=== PATIENT | male | born 1995 | race Caucasian/White ===

== ENCOUNTER 2016-08-31 23:59 | Emergency (ER) | payer OTHER ==
[2016-09-01] MEDS ORDERED: NS 0.9% 1000 ML* 1,000 ML IV ONE (00:47)
[2016-09-01 01:47] LABS: Hematocrit 43 % (42-52); Mean Corpuscular HGB Conc 33 g/dl (31-36); Mean Corpuscular Hemoglobin 28 pg (27-31); Mean Corpuscular Volume 87 fL (80-94); Mean Platelet Volume 9 um3 (7.4-10.4); Red Blood Count 4.98 10^6/ul (4.0-5.4); Red Cell Distribution Width 15 % (10.5-15); White Blood Count 12.1 10^3/ul (3.5-10.8)
[2016-09-01 01:57] LABS: ALT 10 U/L (7-52); AST 11 U/L (13-39); Albumin 3.8 g/dL (3.2-5.2); Alkaline Phosphatase 42 U/L (34-104); Anion Gap 4 mmol/L (2-11); BUN/Creatinine Ratio 11.3 (8-20); Blood Urea Nitrogen 11 mg/dL (6-24); C Reactive Protein < 1.00 mg/L (< 5.00); CO2 Carbon Dioxide 26 mmol/L (22-32); Calcium 8.6 mg/dL (8.6-10.3); Chloride 107 mmol/L (101-111); EGFR African American 124.5 (>60); EGFR Non-African American 96.8 (>60); Globulin 2.7 g/dL (2-4); Glucose 88 mg/dL (70-100); Potassium 3.8 mmol/L (3.5-5.0); Sodium 137 mmol/L (133-145); Total Protein 6.5 g/dL (6.4-8.9)
[2016-09-01] MEDS ORDERED: Ondansetron INJ* 2 MG/ML VIAL IV ONE (02:07)
[2016-09-01] MEDS ORDERED: Ketorolac INJ* 30 MG/ML 1 ML VIAL IV ONE (02:07)
[2016-09-01] MEDS ORDERED: Iohexol 300* (CONTRAST) 10 ML SDV IV ONE (02:09)
[2016-09-01 02:51] LABS: Urine Bilirubin Negative (Negative); Urine Glucose Negative (Negative); Urine Nitrite Negative (Negative)
--- NOTE | 2016-09-01 05:04 | ED ---
Miguel Stanley Adam, scribed for Calvin Patino MD on 09/01/16 at 0040 . GI/ HPI - HPI Summary HPI Summary: Pt is a 21 year old male presenting with dysuria and lower abdominal pain. He states that he has been having urinary symptoms for approximately 1 month but worse in the past week. He reports urgency to urinate but difficulty and pain in doing so. When he is able to urinate after pushing he reports scant output and pain. He last urinated this morning and it was in the manner just described. Pt states that the abdominal pain set on approximately 1 week ago. It is localized in the groin around the genitals but not in the penis or testicles themselves. Pt saw the urologist and is scheduled to have a testicular US done this week. Pt is transgender and tucks his genitals but has stopped tucking for the past few weeks because of concerns about the urinary sx. He also c/o constipation, stating that his last BM was 1 week ago after 3-4 days of diarrhea. He has anal intercourse. 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 - History of Current Complaint Chief Complaint: EDUrogenitalProblems Time Seen by Provider: 09/01/16 00:28 Stated Complaint: UNABLE TO URINATE/TESTICULAR PAIN Hx Obtained From: Patient Onset/Duration: Started Days Ago, Atraumatic, Still Present Timing: Constant Severity: Mild Current Severity: Moderate Pain Intensity: 7 Location of Pain: Diffuse, Groin Associated Signs and Symptoms: Positive: Constipation, Dysuria Aggravating Factor(s): Nothing Alleviating Factor(s): Nothing - Additional Pertinent History Primary Care Physician: ROULA - Allergy/Home Medications Allergies/Adverse Reactions: Allergies Allergy/AdvReac Type Severity Reaction Status Date / Time Lactose Intolerance (GI) Allergy Abdominal Verified 06/15/16 06:40 Pain Olopatadine [From Patanol] Allergy Unknown Verified 06/15/16 03:56 Reaction Details PMH/Surg Hx/FS Hx/Imm Hx Endocrine/Hematology History: Reports: Other Endocrine/Hematological Disorders - "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" Cardiovascular History: Denies: Other Cardiovascular Problems/Disorders Respiratory History: Denies: Other Respiratory Problems/Disorders GI History: Denies: Other GI Disorders Sensory History: Reports: Hx Contacts or Glasses - GLASSES Denies: Hx Hearing Aid Opthamlomology History: Reports: Hx Contacts or Glasses - GLASSES Neurological History: Reports: Hx 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 Denies: Other Neuro Impairments/Disorders Psychiatric History: Denies: Hx Eating Disorder, Hx of Violent Episodes Against Others - Surgical History Surgery Procedure, Year, and Place: WISDOM TEETH Hx Anesthesia Reactions: No Infectious Disease History: No Infectious Disease History: Denies: Traveled Outside the [place] in Last 30 Days - Family History Known Family History: Positive: Other - EtOH abuse and bipolar disorder to both parents - Social History Occupation: Unemployed Lives: With Family - Mother Alcohol Use: Rare Hx Substance Use: No Substance Use Type: Reports: Marijuana Hx Tobacco Use: Yes Smoking Status (MU): Heavy Every Day Tobacco Smoker Type: Cigarettes Length of Time of Smoking/Using Tobacco: 2 packs a day Review of Systems Negative: Fever Positive: Abdominal Pain, Other - Constipation Positive: dysuria, pain, urgency, other - Scant output All Other Systems Reviewed And Are Negative: Yes Physical Exam Triage Information Reviewed: Yes Vital Signs On Initial Exam: Initial Vitals Temp Pulse Resp BP Pulse Ox 98.6 F 97 16 114/76 99 09/01/16 00:11 09/01/16 00:11 09/01/16 00:11 09/01/16 00:11 09/01/16 00:11 Vital Signs Reviewed: Yes Appearance: Positive: Well-Appearing, No Pain Distress Skin: Positive: Warm, Skin Color Reflects Adequate Perfusion, Dry Head/Face: Positive: Normal Head/Face Inspection Eyes: Positive: EOMI, GREG ENT: Positive: Normal ENT inspection Neck: Positive: Supple, Nontender Respiratory/Lung Sounds: Positive: Clear to Auscultation, Breath Sounds Present Cardiovascular: Positive: RRR Abdomen Description: Positive: Nontender, Soft Bowel Sounds: Positive: Present Male Genital Exam: Positive: other - Testicles are descended, nontender to palpation, no swelling, no lesions. Minimal tenderness in the right inguinal crease. Musculoskeletal: Positive: Normal, Strength/ROM Intact Neurological: Positive: Normal, Sensory/Motor Intact, Alert, Oriented to Person Place, Time Psychiatric: Positive: Affect/Mood Appropriate Diagnostics - Vital Signs Vital Signs Temp Pulse Resp BP Pulse Ox 09/01/16 00:11 98.6 F 97 16 114/76 99 - Laboratory Lab Results: Lab Results 09/01/16 09/01/16 09/01/16 Range/Units 01:20 01:20 02:40 WBC 12.1 H (3.5-10.8) 10^3/ul RBC 4.98 (4.0-5.4) 10^6/ul Hgb 14.0 (14.0-18.0) g/dl Hct 43 (42-52) % MCV 87 (80-94) fL MCH 28 (27-31) pg MCHC 33 (31-36) g/dl RDW 15 (10.5-15) % Plt Count 260 (150-450) 10^3/ul MPV 9 (7.4-10.4) um3 Neut % (Auto) 64.0 (38-83) % Lymph % (Auto) 26.4 (25-47) % Swisher % (Auto) 6.0 (1-9) % Eos % (Auto) 3.0 (0-6) % Baso % (Auto) 0.6 (0-2) % Absolute Neuts (auto) 7.8 H (1.5-7.7) 10^3/ul Absolute Lymphs (auto) 3.2 (1.0-4.8) 10^3/ul Absolute Monos (auto) 0.7 (0-0.8) 10^3/ul Absolute Eos (auto) 0.4 (0-0.6) 10^3/ul Absolute Basos (auto) 0.1 (0-0.2) 10^3/ul Absolute Nucleated RBC 0.01 10^3/ul Nucleated RBC % 0.1 Sodium 137 (133-145) mmol/L Potassium 3.8 (3.5-5.0) mmol/L Chloride 107 (101-111) mmol/L Carbon Dioxide 26 (22-32) mmol/L Anion Gap 4 (2-11) mmol/L BUN 11 (6-24) mg/dL Creatinine 0.97 (0.67-1.17) mg/dL Est GFR ( Amer) 124.5 (>60) Est GFR (Non-Af Amer) 96.8 (>60) BUN/Creatinine Ratio 11.3 (8-20) Glucose 88 (70-100) mg/dL Calcium 8.6 (8.6-10.3) mg/dL Total Bilirubin 0.20 (0.2-1.0) mg/dL AST 11 L (13-39) U/L ALT 10 (7-52) U/L Alkaline Phosphatase 42 (34-104) U/L C-Reactive Protein < 1.00 (< 5.00) mg/L Total Protein 6.5 (6.4-8.9) g/dL Albumin 3.8 (3.2-5.2) g/dL Globulin 2.7 (2-4) g/dL Albumin/Globulin Ratio 1.4 (1-3) Urine Color Yellow Urine Appearance Cloudy Urine pH 6.0 (5-9) Ur Specific Parsons 1.014 (1.010-1.030) Urine Protein Negative (Negative) Urine Ketones Trace H (Negative) Urine Blood Negative (Negative) Urine Nitrate Negative (Negative) Urine Bilirubin Negative (Negative) Urine Urobilinogen Negative (Negative) Ur Leukocyte Esterase Negative (Negative) Urine Glucose Negative (Negative) Result Diagrams: 09/01/16 01:20 09/01/16 01:20 Lab Statement: Any lab studies that have been ordered have been reviewed, and results considered in the medical decision making process. - CT A/P CT Interpretation Completed By: Radiologist - FINDINGS: THERE IS ABUNDANT STOOL THROUGHOUT MUCH OF THE COLON. HOWEVER THERE IS NO LARGE OR SMALL BOWEL OBSTRUCTION. NO FREE AIR OR FREE FLUID. NEGATIVE FOR DIVERTICULITIS OR COLITIS. APPENDIX NOT WELL-VISUALIZED BUT NO PARA-CECAL INFLAMMATION. NORMAL KIDNEYS URINARY TRACT AND URINARY BLADDER. NO URINARY TRACT OBSTRUCTION. NORMAL LIVER. CONTRACTED GALLBLADDER. NORMAL SPLEEN. NORMAL PANCREAS. NORMAL ADRENAL GLANDS. OVERALL NO ACUTE INTRA-ABDOMINAL ABNORMALITIES. GIGU Course/Dx - Course Assessment/Plan: INITIALLY PATIENT HAD 400CC IN BLADDER. AFTER VOIDING, 100CC REMAINED. PAIN IMPROVED IN ED WITH TORADOL. DISCUSSED RESULTS WITH PATIENT/ MOTHER. DISCHARGE HOME STABLE. - Diagnoses Provider Diagnoses: Constipation, Urinary retention, Abdominal pain Discharge - Discharge Plan Condition: Stable Disposition: HOME Patient Education Materials: Constipation (ED), Urinary Retention in Men (ED), Abdominal Pain (ED) Referrals: Brandon Carrizales NP [Primary Care Provider] - Additional Instructions: FOLLOW UP WITH YOUR DOCTOR AND [facility]ED [facility]. RETURN TO THE EMERGENCY DEPARTMENT FOR ANY WORSENING OF YOUR CONDITION OR QUESTIONS OR CONCERNS. The documentation as recorded by the Miguel hess Adam accurately reflects the service I personally performed and the decisions made by me, Calvin Patino MD.
[2016-09-01 05:37] VITALS: BP 115/60
--- NOTE | 2016-09-01 09:27 | RAD ---
Indication: Abdominal pain, urinary retention CT of the abdomen and pelvis was performed after oral and IV contrast administration. Coronal and sagittal reconstructed images were obtained. Administered 79.0 ml of OMNIPAQUE 300 mgi/ml was given according to hospital protocol. The lung bases demonstrate no pleural fluid, nodules or masses. Heart is of normal size without evidence of pericardial effusion. The liver is normal in size. No focal lesions or intrahepatic duct dilatation is noted. The spleen is normal in size. No adrenal lesions are noted. The kidneys demonstrate symmetric nephrograms without focal lesions. No retroperitoneal lymphadenopathy is noted. No dilated loops of bowel are noted. The colon is filled with stool. Aorta and inferior vena cava are unremarkable. Appendix is not well demonstrated. No free fluid is noted. The urinary bladder is collapsed. No hernias are identified. IMPRESSION: No abnormal masses or fluid collections are noted. No evidence of pericecal inflammation is noted.
== END 2016-09-01 05:25 | disposition home or self-care (01) ==
LOC: ED 23:59
DX: R33.9 Retention of urine, unspecified (principal); K59.00 Constipation, unspecified; R10.9 Unspecified abdominal pain; F17.210 Nicotine dependence, cigarettes, uncomplicated
CPT/HCPCS: 36415; 74177; 80053; 81003; 85025; 86140; 87491; 87591; 96360; 96374; 96375; 99283; J1885; J2405; Q9967

== ENCOUNTER 2017-02-12 18:02 | Emergency (ER) | payer OTHER ==
[2017-02-12] MEDS ORDERED: NS 0.9% 1000 ML* 1,000 ML IV ONE ×2 (18:18→23:25)
[2017-02-12] MEDS ORDERED: Ondansetron INJ* 2 MG/ML VIAL IV ONE ×2 (18:18→20:04)
[2017-02-12] MEDS ORDERED: Ketorolac INJ* 30 MG/ML 1 ML VIAL IV PUSH ONE (19:08)
[2017-02-12 19:57] LABS: Hematocrit 46 % (42-52); Hemoglobin 15.4 g/dl (14.0-18.0); Mean Corpuscular HGB Conc 34 g/dl (31-36); Mean Corpuscular Hemoglobin 29 pg (27-31); Mean Corpuscular Volume 87 fL (80-94); Mean Platelet Volume 10 um3 (7.4-10.4); Red Blood Count 5.26 10^6/ul (4.0-5.4); Red Cell Distribution Width 14 % (10.5-15); White Blood Count 24.5 10^3/ul (3.5-10.8)
[2017-02-12 19:59] LABS: Add Diff/Slide Review? Slide Review Added; Comments Flag Yes
[2017-02-12] MEDS ORDERED: LORazepam INJ* 2 MG/ML 1 ML VIAL IV PUSH ONE (20:05)
[2017-02-12 20:12] LABS: ALT 20 U/L (7-52); AST 19 U/L (13-39); Albumin 4.4 g/dL (3.2-5.2); Alkaline Phosphatase 34 U/L (34-104); Anion Gap 13 mmol/L (2-11); BUN/Creatinine Ratio 12.6 (8-20); Blood Urea Nitrogen 13 mg/dL (6-24); CO2 Carbon Dioxide 20 mmol/L (22-32); Calcium 9.7 mg/dL (8.6-10.3); Chloride 103 mmol/L (101-111); EGFR African American 116.1 (>60); EGFR Non-African American 90.3 (>60); Globulin 3.1 g/dL (2-4); Glucose 159 mg/dL (70-100); Lipase 10 U/L (11.0-82.0); Potassium 3.6 mmol/L (3.5-5.0); Sodium 136 mmol/L (133-145); Total Protein 7.5 g/dL (6.4-8.9)
[2017-02-12] MEDS ORDERED: Iohexol 300* (CONTRAST) 10 ML SDV IV ONE (20:38)
[2017-02-12] MEDS ORDERED: Morphine INJ* 4 MG/ML 1 ML SYRINGE IV ONE (21:22)
[2017-02-12] MEDS ORDERED: Metoclopramide IV* 5 MG/ML 2 ML VIAL IV SLOW PU ONE (22:44)
[2017-02-12] MEDS ORDERED: HYDROmorphone* 1 MG/ML 1 ML SYR IV SLOW PU ONE (22:44)
[2017-02-12] MEDS ORDERED: Ondansetron ODT TAB* 4 MG PO ONE (23:57)
--- NOTE | 2017-02-12 23:58 | ED ---
GI/ HPI - HPI Summary HPI Summary: 21M (transgender) presents with abdominal pain, n/v/d for today. She also had a nose bleed that resolved. She denies any one else being sick or eatting anything different. She has never had these symptoms before. She denies any constipation, flank pain, dysuria, hematuria, testicular pain, frequency, or urgency. She states her pain is greatest in the epigastric region. She denies any previous abdominal surgeries. - History of Current Complaint Chief Complaint: EDAbdPain Time Seen by Provider: 02/12/17 18:17 Stated Complaint: VOMITING/ NOSE BLEED/ ABD PAIN Pain Intensity: 8 - Additional Pertinent History Primary Care Physician: ROULA - Allergy/Home Medications Allergies/Adverse Reactions: Allergies Allergy/AdvReac Type Severity Reaction Status Date / Time Lactose Intolerance (GI) Allergy Abdominal Verified 06/15/16 06:40 Pain Olopatadine [From Patanol] Allergy Unknown Verified 06/15/16 03:56 Reaction Details PMH/Surg Hx/FS Hx/Imm Hx Endocrine/Hematology History: Reports: Other Endocrine/Hematological Disorders - "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" Denies: Hx Diabetes Cardiovascular History: Denies: Hx Hypertension, Other Cardiovascular Problems/Disorders Respiratory History: Denies: Other Respiratory Problems/Disorders GI History: Denies: Other GI Disorders History: Denies: Hx Renal Disease Sensory History: Reports: Hx Contacts or Glasses - GLASSES Denies: Hx Hearing Aid Opthamlomology History: Reports: Hx Contacts or Glasses - GLASSES Neurological History: Reports: Hx 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 Denies: Other Neuro Impairments/Disorders Psychiatric History: Denies: Hx Eating Disorder, Hx of Violent Episodes Against Others - Surgical History Surgery Procedure, Year, and Place: WISDOM TEETH Hx Anesthesia Reactions: No Infectious Disease History: No Infectious Disease History: Denies: Traveled Outside the [place] in Last 30 Days - Family History Known Family History: Positive: Other - EtOH abuse and bipolar disorder to both parents - Social History Alcohol Use: Rare Hx Substance Use: No Substance Use Type: Reports: Marijuana Hx Tobacco Use: Yes Smoking Status (MU): Heavy Every Day Tobacco Smoker Type: Cigarettes Length of Time of Smoking/Using Tobacco: 2 packs a day Review of Systems Negative: Fever Negative: Chest Pain Negative: Shortness Of Breath Positive: Abdominal Pain, Vomiting, Diarrhea, Nausea All Other Systems Reviewed And Are Negative: Yes Physical Exam Triage Information Reviewed: Yes Vital Signs On Initial Exam: Initial Vitals Temp Pulse Resp BP Pulse Ox 97.7 F 85 19 132/50 100 02/12/17 18:10 02/12/17 18:10 02/12/17 18:10 02/12/17 18:10 02/12/17 18:10 Vital Signs Reviewed: Yes Appearance: Positive: Ill-Appearing Skin: Positive: Warm, Dry Head/Face: Positive: Normal Head/Face Inspection Eyes: Positive: Normal, EOMI, GREG, Conjunctiva Clear ENT: Positive: Normal ENT inspection, Pharynx normal, TMs normal Respiratory/Lung Sounds: Positive: Clear to Auscultation, Breath Sounds Present Cardiovascular: Positive: Normal, RRR Abdomen Description: Positive: Soft, Other: - mild diffuse abdominal tenderness Bowel Sounds: Positive: Present Diagnostics - Vital Signs Vital Signs Temp Pulse Resp BP Pulse Ox 02/12/17 20:30 90 12 109/67 100 02/12/17 20:19 14 02/12/17 19:43 97.3 F 90 14 113/70 100 02/12/17 19:30 81 14 113/70 100 02/12/17 18:10 97.7 F 85 19 132/50 100 - Laboratory Lab Results: Lab Results 02/12/17 02/12/17 Range/Units 19:40 19:40 WBC 24.5 H (3.5-10.8) 10^3/ul RBC 5.26 (4.0-5.4) 10^6/ul Hgb 15.4 (14.0-18.0) g/dl Hct 46 (42-52) % MCV 87 (80-94) fL MCH 29 (27-31) pg MCHC 34 (31-36) g/dl RDW 14 (10.5-15) % Plt Count 291 (150-450) 10^3/ul MPV 10 (7.4-10.4) um3 Neut % (Auto) 90.1 H (38-83) % Lymph % (Auto) 5.7 L (25-47) % Patrick % (Auto) 3.9 (1-9) % Eos % (Auto) 0.1 (0-6) % Baso % (Auto) 0.2 (0-2) % Absolute Neuts (auto) 22.1 H (1.5-7.7) 10^3/ul Absolute Lymphs (auto) 1.4 (1.0-4.8) 10^3/ul Absolute Monos (auto) 0.9 H (0-0.8) 10^3/ul Absolute Eos (auto) 0 (0-0.6) 10^3/ul Absolute Basos (auto) 0.1 (0-0.2) 10^3/ul Absolute Nucleated RBC 0.01 10^3/ul Nucleated RBC % 0 Sodium 136 (133-145) mmol/L Potassium 3.6 (3.5-5.0) mmol/L Chloride 103 (101-111) mmol/L Carbon Dioxide 20 L (22-32) mmol/L Anion Gap 13 H (2-11) mmol/L BUN 13 (6-24) mg/dL Creatinine 1.03 (0.67-1.17) mg/dL Est GFR ( Amer) 116.1 (>60) Est GFR (Non-Af Amer) 90.3 (>60) BUN/Creatinine Ratio 12.6 (8-20) Glucose 159 H (70-100) mg/dL Calcium 9.7 (8.6-10.3) mg/dL Total Bilirubin 0.60 (0.2-1.0) mg/dL AST 19 (13-39) U/L ALT 20 (7-52) U/L Alkaline Phosphatase 34 (34-104) U/L C-React Prot High Sens < 0.20 mg/L Total Protein 7.5 (6.4-8.9) g/dL Albumin 4.4 (3.2-5.2) g/dL Globulin 3.1 (2-4) g/dL Albumin/Globulin Ratio 1.4 (1-3) Lipase 10 L (11.0-82.0) U/L Result Diagrams: 02/12/17 19:40 02/12/17 19:40 Lab Statement: Any lab studies that have been ordered have been reviewed, and results considered in the medical decision making process. - CT abd CT Interpretation: No Acute Changes - no pathology CT Interpretation Completed By: Radiologist Re-Evaluation - Re-Evaluation First Eval Change: Unchanged Comment: still nausous Second Eval Change: Improved Comment: feeling better with ativan GIGU Course/Dx - Course Course Of Treatment: 21M (transgender) presents with abdominal pain, n/v/d for today. She also had a nose bleed that resolved. She denies any one else being sick or eatting anything different. She has never had these symptoms before. She denies any constipation, flank pain, dysuria, hematuria, testicular pain, frequency, or urgency. She states her pain is greatest in the epigastric region. She denies any previous abdominal surgeries. on exam diffusely tender. due to ebc [address] which was normal. patient doing better with zofran, ativan. patient given zofran to go. patient understands and agrees with plan - Diagnoses Differential Diagnoses - Male: Appendicitis, Gastroenteritis (Bacterial), Gastroenteritis (Viral), Urinary Tract Infection Provider Diagnoses: Nausea and vomiting, Abdominal pain Discharge - Discharge Plan Condition: Good Disposition: HOME Prescriptions: Ondansetron ODT TAB* [Zofran 4 MG Odt TAB*] 4 mg PO Q6H PRN #15 tab.odt PRN Reason: Nausea Patient Education Materials: Acute Nausea and Vomiting (ED) Referrals: Brandon Carrizales, STEPHENIE [Primary Care Provider] - Additional Instructions: Can take Zofran every 6 hours as needed for nausea Drink small amounts of fluid as tolerated When able to eat follow BRAT diet: Bananas, rice, applesauce, toast Symptoms likely due to viral gastroenteritis Take ibuprofen or Tylenol for pain as needed every 6 hours Follow up with primary within 5 days Return to ED if develop fever that does not respond to Tylenol or ibuprofen, severe abdominal pain, or any new or worsening symptoms
[2017-02-13 01:49] VITALS: BP 101/47
--- NOTE | 2017-02-13 07:11 | RAD ---
INDICATION: Epigastric abdominal pain. COMPARISON: Comparison is made with a prior CT of the abdomen and pelvis from September 01, 2016. TECHNIQUE: A CT scan of the abdomen and pelvis was performed with intravenous and oral contrast following intravenous injection of 76 ml of Omnipaque 300 nonionic contrast. Contiguous axial sections were obtained from the lung bases through the symphysis pubis. Images were reconstructed in the coronal and sagittal planes. FINDINGS: The lung bases are clear. No pleural effusion is present. The liver and spleen are within normal limits in size without significant focal abnormality. No calcified gallstones are seen. The pancreas appears to be within normal limits in size. The kidneys and adrenal glands are normal in size. No hydronephrosis is seen. No significant focal renal abnormality is seen. The aorta is normal in caliber and demonstrates homogeneous contrast opacification. No significant enlarged retroperitoneal lymph nodes are seen. The stomach, small and large bowel appear nondistended. The appendix is not well visualized although there is no inflammatory change seen in the right lower quadrant. There is no evidence for diverticulitis or colitis. No free intraperitoneal air or fluid is seen. There is a [id number] lumbar scoliosis convex toward the right side. No significant focal osseous abnormality is seen. IMPRESSION: NO EVIDENCE FOR ACUTE FINDING OR CAUSE FOR THE PATIENT'S ABDOMINAL PAIN IS SEEN.
== END 2017-02-13 01:55 | disposition home or self-care (01) ==
LOC: ED 18:02
DX: R10.9 Unspecified abdominal pain (principal); R11.2 Nausea with vomiting, unspecified; R19.7 Diarrhea, unspecified; F17.210 Nicotine dependence, cigarettes, uncomplicated
CPT/HCPCS: 36415; 74177; 80053; 83690; 85025; 86141; 96374; 96375; 99285; A9270-GY; J1885; J2060; J2270; J2405; Q9967

== ENCOUNTER 2017-10-17 14:51 | Emergency (ER) | payer BC, OTHER ==
[2017-10-17 15:13] VITALS: BP 130/69
--- NOTE | 2017-10-17 15:23 | ED ---
GI/ HPI - HPI Summary HPI Summary: 22-year-old transgendered male presents with nausea vomiting and diarrhea for the past 5 days. He states he started with diarrhea 5 days ago. He states past couple days he developed nausea and vomiting. He admits to generalized abdominal pain. He has not tried anything for symptoms. He states he thought he ate something funny. He denies any recent antibiotic use. He denies any blood in his stool. Denies anyone else being sick. He denies any cough or sore throat. Denies any pain with urination. He denies any flank pain. He admits to lightheadness but is able to tolerate liquids and states that he feels hydrated. 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" Denies: Hx Diabetes, Hx Thyroid Disease Cardiovascular History: Denies: Hx Hypertension, Other Cardiovascular Problems/Disorders Respiratory History: Denies: Hx Asthma, Hx Chronic Obstructive Pulmonary Disease (COPD), Other Respiratory Problems/Disorders GI History: Denies: Hx Ulcer, Other GI Disorders History: Denies: Hx Renal Disease Sensory History: Reports: Hx Contacts or Glasses - GLASSES Denies: Hx Hearing Aid Opthamlomology History: Reports: Hx Contacts or Glasses - GLASSES Neurological History: Reports: Hx 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 Denies: Other Neuro Impairments/Disorders Psychiatric History: Denies: Hx Eating Disorder, Hx of Violent Episodes Against Others - Surgical History Surgery Procedure, Year, and Place: WISDOM TEETH Hx Anesthesia Reactions: No Infectious Disease History: No Infectious Disease History: Denies: Hx Hepatitis, Hx Human Immunodeficiency Virus (HIV), Traveled Outside the [place] in Last 30 Days - Family History Known Family History: Positive: Other - EtOH abuse and bipolar disorder to both parents - Social History Alcohol Use: Rare Hx Substance Use: No Substance Use Type: Reports: Marijuana Substance Use Comment - Amount & Last Used: 2 bowls a day Hx Tobacco Use: Yes Smoking Status (MU): Heavy Every Day Tobacco Smoker Type: Cigarettes Length of Time of Smoking/Using Tobacco: 2 packs a day Have You Smoked in the Last Year: Yes Review of Systems Negative: Fever Negative: Chest Pain Negative: Shortness Of Breath Positive: Abdominal Pain, Vomiting, Diarrhea, Nausea All Other Systems Reviewed And Are Negative: Yes Physical Exam Triage Information Reviewed: Yes Vital Signs On Initial Exam: Initial Vitals Temp Pulse Resp BP Pulse Ox 98.5 F 83 18 130/69 98 10/17/17 15:01 10/17/17 15:01 10/17/17 15:01 10/17/17 15:01 10/17/17 15:01 Vital Signs Reviewed: Yes Appearance: Positive: Well-Appearing Skin: Positive: Warm, Dry Head/Face: Positive: Normal Head/Face Inspection Eyes: Positive: Normal, EOMI, GREG, Conjunctiva Clear ENT: Positive: Normal ENT inspection, Pharynx normal, TMs normal Respiratory/Lung Sounds: Positive: Clear to Auscultation, Breath Sounds Present Cardiovascular: Positive: Normal, RRR Abdomen Description: Positive: Nontender, Soft Bowel Sounds: Positive: Present Musculoskeletal: Positive: Normal Neurological: Positive: Normal Psychiatric: Positive: Normal Diagnostics - Vital Signs Vital Signs Temp Pulse Resp BP Pulse Ox 10/17/17 15:01 98.5 F 83 18 130/69 98 - Laboratory Lab Statement: Any lab studies that have been ordered have been reviewed, and results considered in the medical decision making process. GIGU Course/Dx - Course Course Of Treatment: 22-year-old transgendered male presents with nausea vomiting and diarrhea for the past 5 days. He states he started with diarrhea 5 days ago. He states past couple days he developed nausea and vomiting. He admits to generalized abdominal pain. He has not tried anything for symptoms. He states he thought he ate something funny. He denies any recent antibiotic use. He denies any blood in his stool. Denies anyone else being sick. He denies any cough or sore throat. Denies any pain with urination. He denies any flank pain. 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 On exam abdomen soft nontender. Lungs clear to auscultation. Vital stable so will not give fluids as is able to tolerate liquids. We'll give Zofran to treat nausea. Told if gets any worst should go to the ED. will have est care with PCP to follow up as blood pressure in pre-htn range. Patient understands and agrees with plan. - Diagnoses Differential Diagnoses - Male: Gall Bladder Disease, Gastroenteritis (Bacterial) , Gastroenteritis (Viral) Provider Diagnoses: Nausea vomiting and diarrhea, Abdominal pain Discharge - Sign-Out/Discharge Documenting (check all that apply): Discharge - Discharge Plan Condition: Good Disposition: HOME Prescriptions: Ondansetron ODT TAB* [Zofran 4 MG Odt TAB*] 4 mg PO Q6H PRN #16 tab.odt PRN Reason: Nausea Patient Education Materials: Gastroenteritis (ED) Forms: *Work Release Referrals: [facility] [place] [facility]ERR[facility] [Outside] Additional Instructions: Can take Zofran every 6 hours as needed for nausea Drink small amounts of fluid as tolerated When able to eat follow BRAT diet: Bananas, rice, applesauce, toast Take ibuprofen or Tylenol for pain as needed every 6 hours Establish care with primary Return to ED if develop fever that does not respond to Tylenol or ibuprofen, severe abdominal pain, or any new or worsening symptoms - Billing Disposition and Condition Condition: GOOD Disposition: HOME
== END 2017-10-17 15:58 | disposition home or self-care (01) ==
LOC: UCEAST 14:51
DX: R11.2 Nausea with vomiting, unspecified (principal); R19.7 Diarrhea, unspecified; R10.9 Unspecified abdominal pain; F17.210 Nicotine dependence, cigarettes, uncomplicated; Z88.8 Allergy status to other drugs, medicaments and biological substances
CPT/HCPCS: 99212; G0463

== ENCOUNTER 2017-11-26 10:34 | Emergency (ER) | payer BC ==
[2017-11-26] MEDS ORDERED: NS 0.9% 1000 ML* 1,000 ML IV ONE (10:47)
[2017-11-26] MEDS ORDERED: PROCHLORPERAZINE INJ 5 MG/ML 2 ML VIAL IV PRN (10:48)
[2017-11-26] MEDS ORDERED: PROCHLORPERAZINE INJ 5 MG/ML 2 ML VIAL ONE (10:58)
[2017-11-26 11:09] LABS: ABS Basophils 0 10^3/ul (0-0.2); ABS Eosinophils 0.1 10^3/ul (0-0.6); ABS Lymphocytes 1.3 10^3/ul (1.0-4.8); ABS Monocytes 0.5 10^3/ul (0-0.8); ABS Neutrophils 8.6 10^3/ul (1.5-7.7); ABS Nucleated RBC 0 10^3/ul; Eosinophil % 0.8 % (0-6); Hematocrit 46 % (42-52); Hemoglobin 15.2 g/dl (14.0-18.0); Lymphocyte % 12.4 % (25-47); Mean Corpuscular HGB Conc 33 g/dl (31-36); Mean Corpuscular Hemoglobin 29 pg (27-31); Mean Corpuscular Volume 88 fL (80-94); Mean Platelet Volume 9.1 um3 (7.4-10.4); Nucleated Red Blood Cells % 0; Platelet Count 231 10^3/ul (150-450); Red Blood Count 5.22 10^6/ul (4.0-5.4); Red Cell Distribution Width 14 % (10.5-15); White Blood Count 10.5 10^3/ul (3.5-10.8)
[2017-11-26 11:22] LABS: EGFR Non-African American 105.9 (>60)
[2017-11-26 15:20] VITALS: BP 119/70
--- NOTE | 2017-11-26 18:04 | ED ---
Chauncey Stanley Elizabeth, scribed for Parker Montgomery MD on 11/26/17 at 1053 . Abdominal Pain/Male - HPI Summary HPI Summary: This patient is a 22 year old M presenting to [facility] with a chief complaint of abd pain since several days ago. Symptoms aggravated by nothing. Symptoms alleviated by nothing. Patient reports nausea, vomiting, diarrhea, abdominal pain. Patient is a transgender female and has been taking hormones for 3 years. - History of Current Complaint Chief Complaint: EDNauseaVomitDiarrh Stated Complaint: VOMITING Time Seen by Provider: 11/26/17 10:41 Hx Obtained From: Patient Onset/Duration: Lasting Days Timing: Intermittent Severity Currently: Mild Pain Intensity: 0 Aggravating Factor(s): Nothing Alleviating Factor(s): Nothing Associated Signs And Symptoms: Positive: Nausea, Vomiting, Diarrhea - Allergies/Home Medications Allergies/Adverse Reactions: Allergies Allergy/AdvReac Type Severity Reaction Status Date / Time lactose Allergy Abdominal Verified 10/17/17 15:17 Pain olopatadine [From Patanol] Allergy Unknown Verified 10/17/17 15:17 Reaction Details Home Medications: Home Medications Estradiol TAB(NF) 1 mg SL BID 11/26/17 [History Confirmed 11/26/17] Spironolactone TAB* [Aldactone TAB*] 50 mg PO BID 11/26/17 [History Confirmed ] Tenofovir/Emtricitabine(*) [Truvada*] 1 tab PO QAM 11/26/17 [History Confirmed 11/26/17] PMH/Surg Hx/FS Hx/Imm Hx Endocrine/Hematology History: Reports: Other Endocrine/Hematological Disorders - "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" Denies: Hx Diabetes, Hx Thyroid Disease Cardiovascular History: Denies: Hx Hypertension, Other Cardiovascular Problems/Disorders Respiratory History: Denies: Hx Asthma, Hx Chronic Obstructive Pulmonary Disease (COPD), Other Respiratory Problems/Disorders GI History: Denies: Hx Ulcer, Other GI Disorders History: Denies: Hx Renal Disease Sensory History: Reports: Hx Contacts or Glasses - GLASSES Denies: Hx Hearing Aid Opthamlomology History: Reports: Hx Contacts or Glasses - GLASSES Neurological History: Reports: Hx 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 Denies: Other Neuro Impairments/Disorders Psychiatric History: Denies: Hx Eating Disorder, Hx of Violent Episodes Against Others - Surgical History Surgery Procedure, Year, and Place: WISDOM TEETH Hx Anesthesia Reactions: No Infectious Disease History: No Infectious Disease History: Denies: Hx Hepatitis, Hx Human Immunodeficiency Virus (HIV), Traveled Outside the [place] in Last 30 Days - Family History Known Family History: Positive: Other - EtOH abuse and bipolar disorder to both parents - Social History Alcohol Use: Rare Hx Substance Use: No Substance Use Type: Reports: Marijuana Substance Use Comment - Amount & Last Used: 2 bowls a day Hx Tobacco Use: Yes Smoking Status (MU): Heavy Every Day Tobacco Smoker Type: Cigarettes Length of Time of Smoking/Using Tobacco: 2 packs a day Have You Smoked in the Last Year: Yes Review of Systems Negative: Epistaxis Negative: Cough Positive: Abdominal Pain, Vomiting, Diarrhea All Other Systems Reviewed And Are Negative: Yes Physical Exam - Summary Physical Exam Summary: Appearance: The patient is well-nourished in no acute distress and in no acute pain. Skin: The skin is warm and dry and skin color reflects adequate perfusion. HEENT: The head is normocephalic and atraumatic. The pupils are equal and reactive. The conjunctivae are clear and without drainage. Nares are patent and without drainage. Mouth reveals moist mucous membranes and the throat is without erythema and exudate. The external ears are intact. The ear canals are patent and without drainage. The tympanic membranes are intact. Neck: the neck is supple with full range of motion and non-tender. There are no carotid bruits. There is no neck vein distension. Respiratory: Chest is non-tender. Lungs are clear to auscultation and breath sounds are symmetrical and equal. Cardiovascular: Heart is regular rate and rhythm. There is no murmur or rub auscultated. There is no peripheral edema and pulses are symmetrical and equal. Abdomen: The abdomen is soft and non-tender. There are normal bowel sounds heard in all four quadrants and there is no organomegaly palpated. Musculoskeletal: There is no back tenderness noted. Extremities are non-tender with full range of motion. There is good capillary refill. There is no peripheral edema or calf tenderness elicited. Neurological: Patient is alert and oriented to person, place and time. The patient has symmetrical motor strength in all four extremities. Cranial nerves are grossly intact. Deep tendon reflexes are symmetrical and equal in all four extremities. Psychiatric: The patient has an appropriate affect and does not exhibit any anxiety or depression. Triage Information Reviewed: Yes Vital Signs On Initial Exam: Initial Vitals Temp Pulse Resp BP Pulse Ox 98.4 F 85 16 136/81 100 11/26/17 10:36 11/26/17 10:36 11/26/17 10:36 11/26/17 10:36 11/26/17 10:36 Vital Signs Reviewed: Yes Diagnostics - Vital Signs Vital Signs Temp Pulse Resp BP Pulse Ox 11/26/17 10:36 98.4 F 85 16 136/81 100 - Laboratory Lab Results: Lab Results 11/26/17 11/26/17 11/26/17 Range/Units 10:56 10:56 10:56 WBC 10.5 (3.5-10.8) 10^3/ul RBC 5.22 (4.0-5.4) 10^6/ul Hgb 15.2 (14.0-18.0) g/dl Hct 46 (42-52) % MCV 88 (80-94) fL MCH 29 (27-31) pg MCHC 33 (31-36) g/dl RDW 14 (10.5-15) % Plt Count 231 (150-450) 10^3/ul MPV 9.1 (7.4-10.4) um3 Neut % (Auto) 81.5 (38-83) % Lymph % (Auto) 12.4 L (25-47) % Wirt % (Auto) 4.9 (0-7) % Eos % (Auto) 0.8 (0-6) % Baso % (Auto) 0.4 (0-2) % Absolute Neuts (auto) 8.6 H (1.5-7.7) 10^3/ul Absolute Lymphs (auto) 1.3 (1.0-4.8) 10^3/ul Absolute Monos (auto) 0.5 (0-0.8) 10^3/ul Absolute Eos (auto) 0.1 (0-0.6) 10^3/ul Absolute Basos (auto) 0 (0-0.2) 10^3/ul Absolute Nucleated RBC 0 10^3/ul Nucleated RBC % 0 Sodium 136 L (139-145) mmol/L Potassium 4.1 (3.5-5.0) mmol/L Chloride 107 (101-111) mmol/L Carbon Dioxide 27 (22-32) mmol/L Anion Gap 2 (2-11) mmol/L BUN 8 (6-24) mg/dL Creatinine 0.89 (0.67-1.17) mg/dL Est GFR ( Amer) 136.2 (>60) Est GFR (Non-Af Amer) 105.9 (>60) BUN/Creatinine Ratio 9.0 (8-20) Glucose 99 (70-100) mg/dL Lactic Acid 0.9 (0.5-2.0) mmol/L Calcium 9.0 (8.6-10.3) mg/dL Total Bilirubin 0.60 (0.2-1.0) mg/dL AST 16 (13-39) U/L ALT 17 (7-52) U/L Alkaline Phosphatase 49 (34-104) U/L C-Reactive Protein 1.26 (< 5.00) mg/L Total Protein 6.8 (6.4-8.9) g/dL Albumin 4.1 (3.2-5.2) g/dL Globulin 2.7 (2-4) g/dL Albumin/Globulin Ratio 1.5 (1-3) Lipase 12 (11.0-82.0) U/L Result Diagrams: 11/26/17 10:56 11/26/17 10:56 Lab Statement: Any lab studies that have been ordered have been reviewed, and results considered in the medical decision making process. Abdominal Pain Fem Course/Dx - Course Course Of Treatment: Yumiko presented concerned for N/V/D and abdominal pain for several days. Her exam showed only mild diffuse tenderness and her labs were WNL. She improved with IV NS and medications. I will send her home with Zofran ODT. She was unable to give us a stool sample here. - Diagnoses Provider Diagnoses: Gastroenteritis Discharge - Sign-Out/Discharge Documenting (check all that apply): Discharge/Admit/Transfer - Discharge Plan Condition: Stable Disposition: HOME Prescriptions: Ondansetron ODT TAB* [Zofran Odt TAB*] 4 mg PO Q6H PRN #20 tab.odt PRN Reason: Nausea/Vomiting Patient Education Materials: Gastroenteritis (ED) Referrals: [facility] [Outside] - 2 Days Additional Instructions: Follow up with primary care physician in 2-3 days. Return to the emergency department with any new or worsening symptoms. - Billing Disposition and Condition Condition: STABLE Disposition: HOME The documentation as recorded by the Chauncey hess Elizabeth accurately reflects the service I personally performed and the decisions made by me, Parker Montgomery MD.
== END 2017-11-26 15:40 | disposition home or self-care (01) ==
LOC: ED 10:34
DX: K52.9 Noninfective gastroenteritis and colitis, unspecified (principal); F17.210 Nicotine dependence, cigarettes, uncomplicated; F64.0 Transsexualism
CPT/HCPCS: 36415; 80053; 83605; 83690; 85025; 86140; 96360; 96374; 99283; J0780

== ENCOUNTER 2018-02-20 19:24 | Emergency (ER) | payer BC ==
--- NOTE | 2018-02-20 21:01 | ED ---
Abdominal Pain/Male - HPI Summary HPI Summary: Complains of diarrhea 1 month, progressive blood in stool 3 days, intermittent crampy abdominal pain that starts just before BM and resolves with diarrhea. No active pain here in the ED. Denies prior history of abdominal issues, prior history of diarrhea, foreign travel, prior history of hemorrhoids , fissures, new foods, fever, N/V/, cough, sore throat, CP, SOB, change in urine. Medical history is pineal gland cyst. Abdominal/pelvic surgical history is none. Denies any new medications. Receiving estrogen and spironolactone, truvado. - History of Current Complaint Chief Complaint: EDGIBleed Stated Complaint: BLOOD IN STOOL Time Seen by Provider: 02/20/18 19:57 Hx Obtained From: Patient Onset/Duration: Gradual Onset, Lasting Weeks Timing: Intermittent Severity Initially: Mild Severity Currently: None Pain Intensity: 0 Pain Scale Used: 0-10 Numeric Location: Diffuse Radiates: No Character: Cramping Aggravating Factor(s): Nothing Alleviating Factor(s): Nothing Associated Signs And Symptoms: Positive: Blood in Stool - Allergies/Home Medications Allergies/Adverse Reactions: Allergies Allergy/AdvReac Type Severity Reaction Status Date / Time lactose Allergy Abdominal Verified 02/20/18 19:29 Pain olopatadine [From Patanol] Allergy Unknown Verified 02/20/18 19:29 Reaction Details PMH/Surg Hx/FS Hx/Imm Hx Endocrine/Hematology History: Reports: Other Endocrine/Hematological Disorders - "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" Denies: Hx Anticoagulant Therapy, Hx Diabetes, Hx Thyroid Disease Cardiovascular History: Denies: Hx Hypertension, Other Cardiovascular Problems/Disorders Respiratory History: Denies: Hx Asthma, Hx Chronic Obstructive Pulmonary Disease (COPD), Other Respiratory Problems/Disorders GI History: Denies: Hx Ulcer, Other GI Disorders History: Denies: Hx Renal Disease Sensory History: Reports: Hx Contacts or Glasses - GLASSES Denies: Hx Hearing Aid Opthamlomology History: Reports: Hx Contacts or Glasses - GLASSES Neurological History: Reports: Hx 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 Denies: Hx CVA, Other Neuro Impairments/Disorders Psychiatric History: Denies: Hx Eating Disorder, Hx of Violent Episodes Against Others - Surgical History Surgery Procedure, Year, and Place: WISDOM TEETH Hx Anesthesia Reactions: No Infectious Disease History: No Infectious Disease History: Denies: Hx Hepatitis, Hx Human Immunodeficiency Virus (HIV), Traveled Outside the [place] in Last 30 Days - Family History Known Family History: Positive: Other - EtOH abuse and bipolar disorder to both parents - Social History Alcohol Use: Rare Hx Substance Use: No Substance Use Type: Reports: Marijuana Substance Use Comment - Amount & Last Used: 2 bowls a day Hx Tobacco Use: Yes Smoking Status (MU): Heavy Every Day Tobacco Smoker Type: Cigarettes Length of Time of Smoking/Using Tobacco: 2 packs a day Have You Smoked in the Last Year: Yes Review of Systems Constitutional: Negative Eyes: Negative ENT: Negative Cardiovascular: Negative Respiratory: Negative Positive: Abdominal Pain Genitourinary: Negative Musculoskeletal: Negative Skin: Negative Neurological: Negative Psychological: Normal All Other Systems Reviewed And Are Negative: Yes Physical Exam - Summary Physical Exam Summary: No tenderness to any quadrant of abdomen. Triage Information Reviewed: Yes Vital Signs On Initial Exam: Initial Vitals Temp Pulse Resp BP Pulse Ox 98.6 F 88 17 135/86 98 02/20/18 19:26 02/20/18 19:26 02/20/18 19:26 02/20/18 19:26 02/20/18 19:26 Vital Signs Reviewed: Yes Appearance: Positive: Well-Appearing Skin: Positive: Warm Head/Face: Positive: Normal Head/Face Inspection Eyes: Positive: Normal Neck: Positive: Supple Respiratory/Lung Sounds: Positive: Clear to Auscultation Cardiovascular: Positive: Normal Abdomen Description: Positive: Nontender Musculoskeletal: Positive: Normal Neurological: Positive: Normal Psychiatric: Positive: Normal AVPU Assessment: Alert - Thee Coma Scale Best Eye Response: 4 - Spontaneous Best Motor Response: 6 - Obeys Commands Best Verbal Response: 5 - Oriented Coma Scale Total: 15 Diagnostics - Vital Signs Vital Signs Temp Pulse Resp BP Pulse Ox 02/20/18 19:26 98.6 F 88 17 135/86 98 - Laboratory Result Diagrams: 02/20/18 21:00 02/20/18 21:00 Lab Statement: Any lab studies that have been ordered have been reviewed, and results considered in the medical decision making process. Abdominal Pain Fem Course/Dx - Course Course Of Treatment: Complains of diarrhea 1 month, progressive blood in stool 3 days, intermittent crampy abdominal pain that starts just before BM and resolves with diarrhea. No active pain here in the ED. Denies prior history of abdominal issues, prior history of diarrhea, foreign travel, prior history of hemorrhoids, fissures, new foods, fever, N/V/, cough, sore throat, CP, SOB, change in urine. Medical history is pineal gland cyst. Abdominal/pelvic surgical history is none. Denies any new medications. Receiving estrogen and spironolactone, truvado. No tenderness to any quadrant of abdomen. Vital signs normal. Labs unremarkable. Hemoccult positive. Follow-up with GI. - Diagnoses Provider Diagnoses: GI bleed, Diarrhea Discharge - Sign-Out/Discharge Documenting (check all that apply): Patient Departure - Discharge Plan Condition: Stable Disposition: HOME Patient Education Materials: Gastrointestinal Bleeding (ED), Acute Diarrhea (ED ) Referrals: No Primary Care Phys,NOPCP [Primary Care Provider] - Terry Kramer MD [Medical Doctor] - Additional Instructions: Follow-up with GI specialist Dr. Kramer. Return to the ED for any new or worsening symptoms - Billing Disposition and Condition Condition: STABLE Disposition: Home
[2018-02-20 21:11] LABS: ABS Basophils 0.1 10^3/ul (0-0.2); ABS Eosinophils 0.2 10^3/ul (0-0.6); ABS Lymphocytes 2.5 10^3/ul (1.0-4.8); ABS Monocytes 0.6 10^3/ul (0-0.8); ABS Neutrophils 6.3 10^3/ul (1.5-7.7); ABS Nucleated RBC 0 10^3/ul; Eosinophil % 2.1 % (0-6); Hematocrit 45 % (42-52); Hemoglobin 15.2 g/dl (14.0-18.0); Mean Corpuscular HGB Conc 34 g/dl (31-36); Mean Corpuscular Hemoglobin 29 pg (27-31); Mean Corpuscular Volume 86 fL (80-94); Mean Platelet Volume 9.1 um3 (7.4-10.4); Nucleated Red Blood Cells % 0.1; Platelet Count 230 10^3/ul (150-450); Red Blood Count 5.25 10^6/ul (4.00-5.40); Red Cell Distribution Width 15 % (10.5-15); White Blood Count 9.8 10^3/ul (3.5-10.8)
[2018-02-20 21:13] LABS: INR 0.94 (0.77-1.02)
[2018-02-20 22:48] VITALS: BP 116/69
== END 2018-02-20 22:47 | disposition home or self-care (01) ==
LOC: ED 19:24
DX: K92.2 Gastrointestinal hemorrhage, unspecified (principal); R19.7 Diarrhea, unspecified; F17.210 Nicotine dependence, cigarettes, uncomplicated
CPT/HCPCS: 36415; 80053; 82270; 85025; 85610; 86140; 86850; 86900; 86901; 99282

== ENCOUNTER 2018-02-26 14:45 | Emergency (ER) | payer BC ==
[2018-02-26 15:07] VITALS: BP 123/86
--- NOTE | 2018-02-26 16:31 | UC ---
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 Worse when sitting up when recumbent or when standing up. Denies blurred vision, SOB, palpitations or CP. States he continues to have mild rectal bleeding, some drops when he cleans himself but no major bleed and no melena. Denies bleeding anywhere else. Reviewed Lab results from visit ER on , showing normal hematocrit, metabolic panel. UA with findings at that time but patient denies any urinary symptoms. - History Of Current Complaint Chief Complaint: UCGI Stated Complaint: BLOOD IN STOOL Time Seen by Provider: 02/26/18 16:23 Hx Obtained From: Patient Onset/Duration: Sudden Onset, Lasting Days Severity: Bright Red Blood per Rectum Severity Initially: Mild Severity Currently: Mild Pain Intensity: 0 Associated Pain: None Character: Not Applicable Aggravating Factor(s): Bowel Movement Associated Signs And Symptoms: Positive: Dizziness - Allergies/Home medications Allergies/Adverse Reactions: Allergies Allergy/AdvReac Type Severity Reaction Status Date / Time lactose Allergy Abdominal Verified 02/26/18 15:08 Pain olopatadine [From Patanol] Allergy Unknown Verified 02/26/18 15:08 Reaction Details PMH/Surg Hx/FS Hx/Imm Hx Previously Healthy: Yes Other History Of: Negative For: Anticoagulant Therapy - Surgical History Surgical History: Yes Surgery Procedure, Year, and Place: WISDOM TEETH - Family History Known Family History: Positive: Other - EtOH abuse and bipolar disorder to both parents - Social History Alcohol Use: Rare Substance Use Type: Marijuana Substance Use Comment - Amount & Last Used: 2 bowls a day Smoking Status (MU): Heavy Every Day Tobacco Smoker Type: Cigarettes Length of Time of Smoking/Using Tobacco: 2 packs a day Have You Smoked in the Last Year: Yes Household Exposure Type: Cigarettes - Immunization History Most Recent Influenza Vaccination: unknown Most Recent Tetanus Shot: unknown Most Recent Pneumonia Vaccination: unknown Review of Systems Constitutional: Negative Neurological: Other - dizziness All Other Systems Reviewed And Are Negative: Yes Physical Exam Triage Information Reviewed: Yes Appearance: Well-Appearing, No Pain Distress, Well-Nourished Vital Signs: Initial Vital Signs Temp 98.7 F 02/26/18 15:04 Pulse 80 08/05/18 15:04 Resp 12 02/26/18 15:04 BP 123/86 02/26/18 15:04 Pulse Ox 97 02/26/18 15:04 Vital Signs Reviewed: Yes Eyes: Positive: Conjunctiva Clear ENT: Positive: Hearing grossly normal, Pharynx normal Neck: Positive: Supple, Nontender, No Lymphadenopathy Respiratory: Positive: Chest non-tender, Lungs clear, Normal breath sounds, No respiratory distress Cardiovascular: Positive: RRR, No Murmur, Pulses Normal, Brisk Capillary Refill Abdomen Description: Positive: Nontender, No Organomegaly, Soft Bowel Sounds: Positive: Present Musculoskeletal: Positive: Strength Intact, ROM Intact, No Edema Bleed Course/Dx - Course Course Of Treatment: instructed to avoid heat and humidity, avoid being under the sun. Work note given. Continue oral hydration. f/u with GI for w/u of BRBPR - Differential Dx/Diagnosis Provider Diagnoses: Heat Exhaustion. History of BRBPR Discharge - Sign-Out/Discharge Documenting (check all that apply): Patient Departure, Post-Discharge Follow Up - Discharge Plan Condition: Good Disposition: HOME Patient Education Materials: Heat Exhaustion (ED) Forms: *Work Release Referrals: No Primary Care Phys,NOPCP [Primary Care Provider] - [facility] [place]] - Billing Disposition and Condition Condition: GOOD Disposition: Home
== END 2018-02-26 17:30 | disposition home or self-care (01) ==
LOC: UCEAST 14:45
DX: T67.5XXA Heat exhaustion, unspecified, initial encounter (principal); X30.XXXA Exposure to excessive natural heat, initial encounter; Y93.89 Activity, other specified; Y92.9 Unspecified place or not applicable; Y99.0 Civilian activity done for income or pay; K62.5 Hemorrhage of anus and rectum; Z88.8 Allergy status to other drugs, medicaments and biological substances; F17.210 Nicotine dependence, cigarettes, uncomplicated
CPT/HCPCS: 81003; 99211; G0463

== ENCOUNTER 2018-04-09 10:28 | Emergency (ER) | payer BC ==
[2018-04-09 10:41] VITALS: BP 116/77
--- NOTE | 2018-04-10 07:19 | UC ---
Hand/Wrist HPI - HPI Summary HPI Summary: The patient is a 22-year-old male that got his right thumb caught in a car door about a week ago. This occurred while at work. He was seen at the emergency room with a right subungual hematoma. He had an x-ray performed and there was no fracture. He had nail trepanation performed. He presents here because he has some pus draining from his nail trepanation site. Having only mild pain. He has no fever. He is right handed. - History Of Current Complaint Chief Complaint: UCUpperExtremity Stated Complaint: RECHECK THUMB INJURY Time Seen by Provider: 04/09/18 11:02 Hx Obtained From: Patient Onset/Duration: Sudden Onset Severity Initially: Severe Severity Currently: Mild Pain Intensity: 2 Pain Scale Used: 0-10 Numeric Character Of Pain: Aching Aggravating Factor(s): Lifting Alleviating Factor(s): Rest Associated Signs And Symptoms: Positive: Negative Related History: Occupational Injury, Dominant Hand Right - Allergies/Home Medications Allergies/Adverse Reactions: Allergies Allergy/AdvReac Type Severity Reaction Status Date / Time lactose Allergy Abdominal Verified 04/09/18 10:41 Pain olopatadine [From Patanol] Allergy Unknown Verified 04/09/18 10:41 Reaction Details PMH/Surg Hx/FS Hx/Imm Hx Previously Healthy: Yes Other History Of: Negative For: Anticoagulant Therapy - Surgical History Surgical History: Yes Surgery Procedure, Year, and Place: WISDOM TEETH - Family History Known Family History: Positive: Hypertension, Other - EtOH abuse and bipolar disorder to both parents - Social History Alcohol Use: Rare Substance Use Type: Marijuana Substance Use Comment - Amount & Last Used: 2 bowls a day Smoking Status (MU): Heavy Every Day Tobacco Smoker Type: Cigarettes Length of Time of Smoking/Using Tobacco: 2 packs a day Have You Smoked in the Last Year: Yes Household Exposure Type: Cigarettes - Immunization History Most Recent Influenza Vaccination: unknown Most Recent Tetanus Shot: unknown Most Recent Pneumonia Vaccination: unknown Review of Systems Constitutional: Negative Skin: Negative Eyes: Negative ENT: Negative Respiratory: Negative Cardiovascular: Negative Gastrointestinal: Negative Genitourinary: Negative Motor: Negative Neurovascular: Negative Musculoskeletal: Negative Neurological: Negative Psychological: Negative Is Patient Immunocompromised?: No All Other Systems Reviewed And Are Negative: Yes Physical Exam Triage Information Reviewed: Yes Appearance: Well-Appearing, No Pain Distress Vital Signs: Initial Vital Signs Temp 98 F 04/09/18 10:38 Pulse 83 04/09/18 10:38 Resp 17 04/09/18 10:38 BP 116/77 04/09/18 10:38 Pulse Ox 98 04/09/18 10:38 Eyes: Positive: Conjunctiva Clear ENT: Positive: Hearing grossly normal. Negative: Nasal congestion, Nasal drainage, Trismus, Muffled voice Neck: Positive: Supple, Nontender, No Lymphadenopathy Respiratory: Positive: Lungs clear, Normal breath sounds, No respiratory distress Cardiovascular: Positive: RRR, No Murmur Musculoskeletal: Positive: Other: - right thumb- single small drop of pus wxpressed from nail trepination hole when pressure applied. culture obtained Neurological: Positive: Alert Psychological Exam: Normal Skin Exam: Normal Hand/Wrist Course/Dx - Differential Dx/Diagnosis Provider Diagnoses: right thumb sub ungual infection Discharge - Sign-Out/Discharge Documenting (check all that apply): Patient Departure All imaging exams completed and their final reports reviewed: No Studies - Discharge Plan Condition: Stable Disposition: HOME Prescriptions: Cephalexin CAP* [Keflex CAP*] 500 mg PO QID #28 cap Referrals: No Primary Care Phys,NOPCP [Primary Care Provider] - Additional Instructions: recheck for new or worsening symptoms I think your nail will loosen up a and fall off - Billing Disposition and Condition Condition: STABLE Disposition: Home
== END 2018-04-09 11:19 | disposition home or self-care (01) ==
LOC: UCEAST 10:28
DX: S60.111D Contusion of right thumb with damage to nail, subsequent encounter (principal); L03.011 Cellulitis of right finger; W23.0XXD Caught, crushed, jammed, or pinched between moving objects, subsequent encounter; Z88.8 Allergy status to other drugs, medicaments and biological substances; F17.210 Nicotine dependence, cigarettes, uncomplicated
CPT/HCPCS: 87070; 87077; 87186; 87205; 87640; 87641; 99212; G0463

== ENCOUNTER 2018-06-02 04:22 | Emergency (ER) | payer BC ==
[2018-06-02] MEDS ORDERED: Tetracaine 0.5% OPTH.SOL 4 ML* 1 DROP BTL ONE (04:48)
[2018-06-02] MEDS ORDERED: Fluorescein Sodium TOPICAL* 1 MG TEST STRIP ONE (04:48)
--- NOTE | 2018-06-02 04:59 | ED ---
Throat Pain/Nasal Congestion - HPI Summary HPI Summary: This pt is a 22 y/o male presenting to [facility] c/o foreign body sensation in right eye. Pt reports he wiped his face with his sleeve after having worked with metal at around 23:00 last night. He states he woke up at 03:00 today and had blurry vision. He states he has right eye irritation, redness and watery eye discharge. Pt does not use glasses. He denies any other injuries or pain. - History of Current Complaint Chief Complaint: EDEyeProblem Time Seen by Provider: 06/02/18 04:31 Hx Obtained From: Patient Onset/Duration: Lasting Hours, Still Present Severity: Moderate Associated Signs And Symptoms: Positive: FB Sensation Cough: None Related History: Other (Noted In Comments) - wiped face with sleeve after working with metals - Allergies/Home Medications Allergies/Adverse Reactions: Allergies Allergy/AdvReac Type Severity Reaction Status Date / Time lactose Allergy Abdominal Verified 06/02/18 04:28 Pain olopatadine [From Patanol] Allergy Unknown Verified 06/02/18 04:28 Reaction Details PMH/Surg Hx/FS Hx/Imm Hx Endocrine/Hematology History: Reports: Other Endocrine/Hematological Disorders - "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" Denies: Hx Anticoagulant Therapy, Hx Diabetes, Hx Thyroid Disease Cardiovascular History: Denies: Hx Hypertension, Other Cardiovascular Problems/Disorders Respiratory History: Denies: Hx Asthma, Hx Chronic Obstructive Pulmonary Disease (COPD), Other Respiratory Problems/Disorders GI History: Denies: Hx Ulcer, Other GI Disorders History: Denies: Hx Renal Disease Sensory History: Reports: Hx Contacts or Glasses - GLASSES Denies: Hx Hearing Aid Opthamlomology History: Reports: Hx Contacts or Glasses - GLASSES Neurological History: Reports: Hx 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 Denies: Hx CVA, Other Neuro Impairments/Disorders Psychiatric History: Denies: Hx Eating Disorder, Hx of Violent Episodes Against Others - Surgical History Surgery Procedure, Year, and Place: WISDOM TEETH Hx Anesthesia Reactions: No Infectious Disease History: No Infectious Disease History: Denies: Hx Hepatitis, Hx Human Immunodeficiency Virus (HIV), Traveled Outside the [place] in Last 30 Days - Family History Known Family History: Positive: Hypertension, Other - EtOH abuse and bipolar disorder to both parents - Social History Alcohol Use: Rare Hx Substance Use: Yes Substance Use Type: Reports: Marijuana Substance Use Comment - Amount & Last Used: 2 bowls a day Hx Tobacco Use: Yes Smoking Status (MU): Heavy Every Day Tobacco Smoker Type: Cigarettes Length of Time of Smoking/Using Tobacco: 2 packs a day Have You Smoked in the Last Year: Yes Review of Systems Negative: Fever, Chills Eyes: Other - POSITIVE: foreign body sensation in right eye, irritation in right eye Positive: Blurred Vision - right eye, Drainage - watery from right eye, Erythema - right eye Cardiovascular: Negative Respiratory: Negative Gastrointestinal: Negative Neurological: Negative All Other Systems Reviewed And Are Negative: Yes Physical Exam - Summary Physical Exam Summary: VITAL SIGNS: Reviewed. GENERAL: Patient is a well-developed and nourished male who is lying comfortable in the stretcher. Patient is not in any acute respiratory distress. HEAD AND FACE: No signs of trauma. No ecchymosis, hematomas or skull depressions. No sinus tenderness. EYES: PERRLA, EOMI x 2, Right conjunctival injection. Right eye: with fluorescein stain there is no foreign body seen and there is pinpoint corneal abrasion at the center of pupil. EARS: Hearing grossly intact. Ear canals and tympanic membranes are within normal limits. MOUTH: Oropharynx within normal limits. NECK: Supple, trachea is midline, no adenopathy, no JVD, no carotid bruit, no c- spine tenderness, neck with full ROM. CHEST: Symmetric, no tenderness at palpation LUNGS: Clear to auscultation bilaterally. No wheezing or crackles. CVS: Regular rate and rhythm, S1 and S2 present, no murmurs or gallops appreciated. ABDOMEN: Soft, non-tender. No signs of distention. No rebound no guarding, and no masses palpated. Bowel sounds are normal. EXTREMITIES: FROM in all major joints, no edema, no cyanosis or clubbing. NEURO: Alert and oriented x 3. No acute neurological deficits. Speech is normal and follows commands. SKIN: Dry and warm Triage Information Reviewed: Yes Vital Signs On Initial Exam: Initial Vitals Temp Pulse Resp BP Pulse Ox 97.6 F 92 16 145/91 97 06/02/18 04:26 06/02/18 04:26 06/02/18 04:26 06/02/18 04:26 06/02/18 04:26 Vital Signs Reviewed: Yes Diagnostics - Vital Signs Vital Signs Temp Pulse Resp BP Pulse Ox 06/02/18 04:26 97.6 F 92 16 145/91 97 - Laboratory Lab Statement: Any lab studies that have been ordered have been reviewed, and results considered in the medical decision making process. EENT Course/Dx - Course Assessment/Plan: Pt is a 22 y/o male who presents to the ED for foreign body sensation in right eye. Pt reports he wiped his face with his sleeve after having worked with metal at around 23:00 last night. He states he woke up at 03: 00 today and had blurry vision. He states he has right eye irritation, redness and watery eye discharge. Pt does not use glasses. He denies any other injuries or pain. On exam, pt has right conjunctival injection. Right eye with fluorescein stain: no foreign body seen and there is pinpoint corneal abrasion at the center of pupil. In the ED course the pt was given Percocet, Toradol, ciprofloxacin, Tobramycin, Cyclogyl. He was discharged home with follow up from ophthalmology today morning for further evaluation and treatment. Pt was also given instructions on using Ciprofloxacin, Tobramycin, and Cyclogyl. Pt will be given a prescription for Motrin. He was advised to stay away from the sun and keep his eye patch on. Pt understands and agrees. - Diagnoses Provider Diagnoses: Corneal abrasion, right Discharge - Sign-Out/Discharge Documenting (check all that apply): Patient Departure - Discharge home - Discharge Plan Condition: Stable Disposition: HOME Prescriptions: Ibuprofen TAB* [Motrin TAB* 800 MG] 800 mg PO Q6H PRN #30 tab PRN Reason: Pain Patient Education Materials: Corneal Abrasion (ED) Referrals: Sawyer Butler MD [Medical Doctor] - Additional Instructions: Ciprofloxacin eye drops: use 1 drop to the right eye every 2 hours. Tobramycin ointment: use 1 inch to the right eye twice a day. Cyclogyl eye drops: use 1-2 drops to right eye every 6 hours as needed for pain. Please contact Dr. Butler, dock operations supervisor, today in the morning for further evaluation and treatment. Stay away from the sun. Keep the eye patch on. RETURN TO EMERGENCY DEPARTMENT FOR ANY NEW OR WORSENING SYMPTOMS. - Attestation Statements Document Initiated by Scribe: Yes Documenting Scribe: Luma Kolb Provider For Whom Scribe is Documenting (Include Credential): Gerardo Vega MD Scribe Attestation: Luma Stanley, scribed for Gerardo Vega MD on 06/02/18 at 0541.
[2018-06-02] MEDS ORDERED: Tobramycin 0.3% OPHTH.OINT* 3.5 GM TUBE (OPTH OINTMENT) RIGHT EYE SCH (05:00)
[2018-06-02] MEDS ORDERED: oxyCODONE/Acetamin 5/325 MG* TAB PO ONE (05:01)
[2018-06-02] MEDS ORDERED: Ketorolac INJ* 60 MG/2 ML VIAL IM ONE (05:01)
[2018-06-02] MEDS ORDERED: Cyclopentolate 1% OPTH.SOL* 2 ML BTL RIGHT EYE ONE (05:29)
[2018-06-02] MEDS ORDERED: Ciprofloxacin 0.3% OPTH.SOL* 2.5 ML BTL RIGHT EYE SCH (05:30)
[2018-06-02 06:13] VITALS: BP 145/90
== END 2018-06-02 06:13 | disposition home or self-care (01) ==
LOC: ED 04:22
DX: S05.01XA Injury of conjunctiva and corneal abrasion without foreign body, right eye, initial encounter (principal); X58.XXXA Exposure to other specified factors, initial encounter; Y92.9 Unspecified place or not applicable; F17.210 Nicotine dependence, cigarettes, uncomplicated
CPT/HCPCS: 96372; 99282; A9270-GY; J1885

== ENCOUNTER 2018-07-09 20:33 | Emergency (ER) | payer BC ==
--- NOTE | 2018-07-09 21:25 | ED ---
Complex/Multi-Sys Presentation - HPI Summary HPI Summary: 23 year old M presenting to [facility] complains of dental pain since one week ago. The patient rates the pain 8/10 in severity. Symptoms aggravated by nothing. Symptoms alleviated by nothing. Patient seen by dentist one month ago. Patient reports that he may need five teeth pulled. He was put on amoxicillin, of which he ran out five days ago, and Naproxen, of which his last dose was 5 hours ago. Patient reports jaw pain and occasional sore throat in the morning. He denies facial swelling and fever. Pt states he is taking medication to undergo transgender transition. Pt also takes antiretrovirals. Home Medications Medication Instructions Recorded Confirmed Type Estradiol TAB(NF) 2 mg SL BID 11/26/17 04/09/18 History Spironolactone TAB* [Aldactone 100 mg PO BID 11/26/17 04/09/18 History TAB*] Tenofovir/Emtricitab 200/300 * 1 tab PO QAM 11/26/17 04/09/18 History [Truvada*] Cephalexin CAP* [Keflex CAP*] 500 mg PO QID #28 cap 04/09/18 Rx Ibuprofen TAB* [Motrin TAB* 800 MG] 800 mg PO Q6H PRN #30 tab 06/02/18 Rx - History Of Current Complaint Chief Complaint: EDDentalPain Time Seen by Provider: 07/09/18 21:16 Hx Obtained From: Patient Onset/Duration: Lasting Weeks - 1, Still Present Timing: Constant Severity Currently: Severe Severity Initially: Severe - 8/10 Location: Pain At: - left upper rear teeth Character: Dull Aggravating Factor(s): Nothing Alleviating Factor(s): Nothing Associated Signs And Symptoms: Positive: Other - jaw pain and occasional sore throat in the morning; NEGATIVE: facial swelling and fever - Allergies/Home Medications Allergies/Adverse Reactions: Allergies Allergy/AdvReac Type Severity Reaction Status Date / Time lactose Allergy Abdominal Verified 07/09/18 20:50 Pain olopatadine [From Patanol] Allergy Unknown Verified 07/09/18 20:50 Reaction Details PMH/Surg Hx/FS Hx/Imm Hx Previously Healthy: No Endocrine/Hematology History: Reports: Other Endocrine/Hematological Disorders - "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"; undergoing transgender transition Denies: Hx Anticoagulant Therapy, Hx Diabetes, Hx Thyroid Disease Cardiovascular History: Denies: Hx Hypertension, Other Cardiovascular Problems/Disorders Respiratory History: Denies: Hx Asthma, Hx Chronic Obstructive Pulmonary Disease (COPD), Other Respiratory Problems/Disorders GI History: Denies: Hx Ulcer, Other GI Disorders History: Denies: Hx Renal Disease Sensory History: Reports: Hx Contacts or Glasses - GLASSES Denies: Hx Hearing Aid Opthamlomology History: Reports: Hx Contacts or Glasses - GLASSES Neurological History: Reports: Hx 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 Denies: Hx CVA, Other Neuro Impairments/Disorders Psychiatric History: Denies: Hx Eating Disorder, Hx of Violent Episodes Against Others - Surgical History Surgery Procedure, Year, and Place: WISDOM TEETH Hx Anesthesia Reactions: No Infectious Disease History: No Infectious Disease History: Denies: Hx Hepatitis, Hx Human Immunodeficiency Virus (HIV), Traveled Outside the [place] in Last 30 Days - Family History Known Family History: Positive: Hypertension, Diabetes - father, Other - EtOH abuse and bipolar disorder to both parents - Social History Alcohol Use: Rare Hx Substance Use: Yes Substance Use Type: Reports: Marijuana Substance Use Comment - Amount & Last Used: 2 bowls a day Hx Tobacco Use: Yes Smoking Status (MU): Heavy Every Day Tobacco Smoker Type: Cigarettes Length of Time of Smoking/Using Tobacco: 2 packs a day Have You Smoked in the Last Year: Yes Review of Systems Negative: Fever ENT: Negative - facial swelling Positive: Dental Pain, Sore Throat, Other - jaw pain Cardiovascular: Negative Respiratory: Negative Skin: Negative Neurological: Negative Psychological: Normal All Other Systems Reviewed And Are Negative: Yes Physical Exam - Summary Physical Exam Summary: Appearance: Well-appearing, moderate pain distress, well-nourished Skin: Warm, color reflects adequate perfusion, dry Head: Normal Head/Face inspection, atraumatic Eyes: Conjunctiva clear ENT: Poor dentition throughout. Multiple caries and plaque. Minimal gingival swelling in left upper rear of mouth. No abscess noted. No facial swelling. Pharynx is clear Neck: Supple, no nodes, no JVD Respiratory: Lungs clear, normal breath sounds, no respiratory distress Cardio: RRR, No murmur, pulses normal, brisk capillary refill Musculoskeletal: Strength Intact/ROM intact, no calf tenderness, no edema. Psychological: Normal Neuro: Alert, muscle tone normal, no focal deficit Triage Information Reviewed: Yes Vital Signs On Initial Exam: Initial Vitals Temp Pulse Resp BP Pulse Ox 98.1 F 78 16 129/75 97 07/09/18 20:48 07/09/18 20:48 07/09/18 20:48 07/09/18 20:48 07/09/18 20:48 Vital Signs Reviewed: Yes Diagnostics - Vital Signs Vital Signs Temp Pulse Resp BP Pulse Ox 07/09/18 20:48 98.1 F 78 16 129/75 97 - Laboratory Lab Statement: Any lab studies that have been ordered have been reviewed, and results considered in the medical decision making process. Complex Multi-Symp Course/Dx Course Of Treatment: Pt with dental pain, left rear, upper. Is awaiting dental approval for appt. Was improved when taking amoxicillin and has run out of this medication. Is taking naproxen for pain. Patient's medications reviewed. Patient's allergies noted. In ED course, patient was given amoxicillin 500mg po x 1. Patient will be discharged with prescription for Amoxicillin and Naproxen. He will follow up with his dentist. He was given instructions to return to ED for new or worsening symptoms. He is agreeable to discharge. - Diagnoses Provider Diagnoses: Dentalgia Discharge - Sign-Out/Discharge Documenting (check all that apply): Patient Departure - Discharge - Discharge Plan Condition: Stable Disposition: HOME Prescriptions: Amoxicillin PO (*) [Amoxicillin 500 MG CAP*] 500 mg PO TID #30 cap Naproxen TAB* [Naprosyn 250 mg TAB*] 500 mg PO BID #30 tab Patient Education Materials: Toothache (ED) Referrals: [facility] [Outside] - As Soon As Possible Additional Instructions: Follow up with your dentist as soon as possible. You were given your first dose of Amoxicillin 500mg in the ER tonight. We have prescribed naproxen 500mg twice a day as needed for pain. Continue your other medications as directed. Return to the ER if you have new or worsening symptoms. - Billing Disposition and Condition Condition: STABLE Disposition: Home - Attestation Statements Document Initiated by Scribe: Yes Documenting Scribe: Citlaly Romero Provider For Whom Scribe is Documenting (Include Credential): Sweetie Rivera MD Scribe Attestation: Citlaly Stanley, scribed for Sweetie Rivera MD on 07/10/18 at 0035. Scribe Documentation Reviewed: Yes Provider Attestation: The documentation as recorded by the scribe, Citlaly Romero accurately reflects the service I personally performed and the decisions made by me, Sweetie Rivera MD Status of Scribbenny Document: Viewed
[2018-07-09] MEDS ORDERED: Amoxicillin PO (*) 500 MG CAP PO ONE (21:28)
[2018-07-09 21:55] VITALS: BP 113/66
== END 2018-07-09 21:54 | disposition home or self-care (01) ==
LOC: ED 20:33
DX: K08.89 Other specified disorders of teeth and supporting structures (principal); J02.9 Acute pharyngitis, unspecified; F17.210 Nicotine dependence, cigarettes, uncomplicated
CPT/HCPCS: 99282; A9270-GY

== ENCOUNTER 2018-11-26 12:23 | Emergency (ER) | payer SELFPAY ==
--- NOTE | 2018-11-26 12:26 | UC ---
Lower Extremity/Ankle HPI - HPI Summary HPI Summary: 23 yo female identifying pt presents with b/l great toe pain. They tell me that they have had ingrown big toenails for months, but last night decided to "dig these out". This morning has pain at both sites. Pain is worse with ambulating and weight bearing. UTD on tetanus. - History of Current Complaint Stated Complaint: TOE PAIN Time Seen by Provider: 11/26/18 12:25 Hx Obtained From: Patient Onset/Duration: Sudden Onset Severity Initially: Mild Severity Currently: Moderate Pain Intensity: 5 Pain Scale Used: 0-10 Numeric - Allergies/Home Medications Allergies/Adverse Reactions: Allergies Allergy/AdvReac Type Severity Reaction Status Date / Time lactose Allergy Abdominal Verified 11/26/18 12:38 Pain olopatadine [From Patanol] Allergy Unknown Verified 11/26/18 12:38 Reaction Details PMH/Surg Hx/FS Hx/Imm Hx Neurological History: Migraine Psychological History: Anxiety, Depression, Bipolar Disorder Other History Of: Negative For: Anticoagulant Therapy - Surgical History Surgical History: Yes Surgery Procedure, Year, and Place: WISDOM TEETH - Family History Known Family History: Positive: Hypertension, Diabetes - father, Other - EtOH abuse and bipolar disorder to both parents - Social History Alcohol Use: Rare Substance Use Type: Marijuana Substance Use Comment - Amount & Last Used: 2 bowls a day Smoking Status (MU): Heavy Every Day Tobacco Smoker Type: Cigarettes Length of Time of Smoking/Using Tobacco: 2 packs a day Have You Smoked in the Last Year: Yes Household Exposure Type: Cigarettes - Immunization History Most Recent Influenza Vaccination: unknown Most Recent Tetanus Shot: unknown Most Recent Pneumonia Vaccination: unknown Review of Systems All Other Systems Reviewed And Are Negative: Yes Constitutional: Positive: Negative Skin: Positive: Other - ingrown toenail Respiratory: Positive: Negative Cardiovascular: Positive: Negative Neurovascular: Positive: Negative Neurological: Positive: Negative Psychological: Positive: Negative Physical Exam - Summary Physical Exam Summary: GENERAL: NAD. WDWN. No pain distress. SKIN: RIGHT GREAT TOE: Medial nail-skin fold with mild superficial trauma and wound. Nail trimmed at site. LEFT GREAT TOE: similar appearance as right. No edema, drainage, streaking. CHEST: No accessory muscle use. Breathing comfortably and in no distress. CV: Pulses intact. Cap refill <2seconds NEURO: Alert. PSYCH: Age appropriate behavior. Triage Information Reviewed: Yes Vital Signs: Vital Signs: Temp Pulse Resp BP Pulse Ox 99.0 F 85 18 125/83 96 11/26/18 12:31 11/26/18 12:31 11/26/18 12:31 11/26/18 12:31 11/26/18 12:31 Vital Signs Reviewed: Yes Lower Extremity Course/Dx - Course Course Of Treatment: Pt appears to have resolved their own ingrown toenails, but will apply antibiotic ointment and a band-aid to cover the exposed skin. Advised to change dressing daily until well healed. - Differential Dx/Diagnosis Provider Diagnosis: Ingrown toenail Discharge - Sign-Out/Discharge Documenting (check all that apply): Patient Departure All imaging exams completed and their final reports reviewed: No Studies - Discharge Plan Condition: Stable Disposition: HOME Patient Education Materials: Ingrown Nail (ED) Referrals: No Primary Care Phys,NOPCP [Primary Care Provider] - Additional Instructions: If you develop a fever, shortness of breath, chest pain, new or worsening symptoms - please call your PCP or go to the ED immediately. Your toenails no longer appear to be ingrown, but there area some open areas of skin. Please apply antibiotic ointment and keep covered with a band-aid. Change the band-aid daily for the next 3-5 days until well healed. If you notice redness, swelling, drainage, or increased pain - please be rechecked - Billing Disposition and Condition Condition: STABLE Disposition: Home
[2018-11-26 12:37] VITALS: BP 125/83
== END 2018-11-26 12:44 | disposition home or self-care (01) ==
LOC: UCEAST 12:23
DX: L60.0 Ingrowing nail (principal); M79.675 Pain in left toe(s); M79.674 Pain in right toe(s); G43.909 Migraine, unspecified, not intractable, without status migrainosus; F41.9 Anxiety disorder, unspecified; F31.9 Bipolar disorder, unspecified; Z88.8 Allergy status to other drugs, medicaments and biological substances; F17.210 Nicotine dependence, cigarettes, uncomplicated
CPT/HCPCS: 99212; G0463

== ENCOUNTER 2019-01-17 11:22 | Emergency (ER) | payer OTHER ==
[2019-01-17 11:46] VITALS: BP 120/81
--- NOTE | 2019-01-17 12:57 | UC ---
Dental HPI - HPI Summary HPI Summary: 23-year-old trans-female presents with 2 day history of dental pain to her left upper molar. States she has an appointment with her dentist scheduled for February 01, 2019. Has been taking naproxen with some relief in the pain. Denies fever , chills, trismus, facial swelling, drainage, dysphagia, or difficulty breathing. - History of Current Complaint Chief Complaint: UCGI Stated Complaint: MOUTH COMPLAINT Time Seen by Provider: 01/17/19 12:39 Hx Obtained From: Patient Pain Intensity: 6 Dental: 1 - Severe dental decay with fracture. - Allergies/Home Medications Allergies/Adverse Reactions: Allergies Allergy/AdvReac Type Severity Reaction Status Date / Time lactose Allergy Abdominal Verified 01/17/19 11:46 Pain olopatadine [From Patanol] Allergy Unknown Verified 01/17/19 11:46 Reaction Details PMH/Surg Hx/FS Hx/Imm Hx Previously Healthy: Yes - Denies significant PMH Psychological History: Depression Other History Of: Negative For: Anticoagulant Therapy - Surgical History Surgical History: Yes Surgery Procedure, Year, and Place: WISDOM TEETH - Family History Known Family History: Positive: Hypertension, Diabetes - father, Other - EtOH abuse and bipolar disorder both parents - Social History Occupation: Employed Full-time Lives: With Family Alcohol Use: Occasionally Substance Use Type: Marijuana Substance Use Comment - Amount & Last Used: daily Smoking Status (MU): Heavy Every Day Tobacco Smoker Type: Cigarettes Length of Time of Smoking/Using Tobacco: 2 packs a day Have You Smoked in the Last Year: Yes Household Exposure Type: Cigarettes - Immunization History Most Recent Influenza Vaccination: unknown Most Recent Tetanus Shot: unknown Most Recent Pneumonia Vaccination: unknown Review of Systems All Other Systems Reviewed And Are Negative: Yes Constitutional: Negative: Fever, Chills ENT: Positive: Other - See HPI Respiratory: Positive: Negative Cardiovascular: Positive: Negative Gastrointestinal: Positive: Negative Genitourinary: Positive: Negative Musculoskeletal: Positive: Negative Neurological: Positive: Negative Is Patient Immunocompromised?: No Physical Exam - Summary Physical Exam Summary: GENERAL APPEARANCE: Well developed, well nourished, alert and cooperative, and appears to be in no acute distress. HEAD: Atraumatic. Normocephalic. No facial swelling noted. THROAT: Pharynx normal No tonsilar inflammation, swelling, exudate, or lesions. Uvula midline. Overall dentition in poor condition. Severe decay with fracture of the left upper 1st molar. Mild gingival erythema without fluctuance, induration, or drainage. No trismus. NECK: Neck supple, non-tender without lymphadenopathy. CARDIAC: Normal S1 and S2. No S3, S4 or murmurs. Rhythm is regular. There is no peripheral edema, cyanosis or pallor. Extremities are warm and well perfused. Capillary refill is less than 2 seconds. Peripheral pulses intact. LUNGS: Clear to auscultation without rales, rhonchi, wheezing or diminished breath sounds. ABDOMEN: Positive bowel sounds. Soft, nondistended, nontender. No guarding or rebound. No masses or hepatosplenomegally. MUSKULOSKELETAL: ROM intact to all extremities. No joint erythema or tenderness. Normal muscular development. Normal gait. SKIN: Skin normal color, texture and turgor with no lesions or eruptions. Triage Information Reviewed: Yes Vital Signs: Initial Vital Signs Temp 99.0 F 01/17/19 11:40 Pulse 79 01/17/19 11:40 Resp 18 01/17/19 11:40 BP 120/81 01/17/19 11:40 Pulse Ox 100 01/17/19 11:40 Vital Signs Reviewed: Yes Dental Complaint Course/Dx - Course Course Of Treatment: 23-year-old trans-female presents with 2 day history of dental pain to her left upper molar. States she has an appointment with her dentist scheduled for February 01, 2019. Has been taking naproxen with some relief in the pain. Denies fever , chills, trismus, facial swelling, drainage, dysphagia, or difficulty breathing. Afebrile. Vital signs stable. Patient had overall dentition in poor condition. Severe decay with fracture of the left upper 1st molar. Mild gingival erythema without fluctuance, induration, or drainage. No trismus. Will treat for probable dental infection with Augmentin 875 mg twice a day 10 days. Patient was encouraged to keep her appointment with her dentist as scheduled. Anticipatory guidance warning symptoms were reviewed with the patient. She verbalizes understanding and agrees with plan of care. - Differential Dx/Diagnosis Differential Diagnosis/Dx: Dental Abscess, Dental Caries, Fractured Tooth, Odontogenic Pain, Peridontic Disease Provider Diagnosis: Pain, dental Discharge - Sign-Out/Discharge Documenting (check all that apply): Patient Departure All imaging exams completed and their final reports reviewed: No Studies - Discharge Plan Condition: Stable Disposition: HOME Prescriptions: Amoxicillin/Clavulanate TAB* [Augmentin TAB 875*] 875 mg PO BID #20 tab Patient Education Materials: Toothache (ED) Forms: *Work Release Referrals: No Primary Care Phys,NOPCP [Primary Care Provider] - Additional Instructions: Start Augmentin 875 mg 1 tablet twice a day for 10 days. Take with food to avoid upset stomach. Be sure to take the entire course even if you're feeling better. Continue using the naproxen (Aleve) as needed for pain. Be sure to rinse your mouth out with a warm salt water solution after every time you eat to remove any debris. Make sure keep your appointment with the dentist on 02/01/2019 as scheduled. Seek immediate medical attention in the emergency room if you develop fever greater than 100.5 F, you are unable to open of close your mouth, are unable to swallow, have difficulty breathing, or any worsening of symptoms. - Billing Disposition and Condition Condition: STABLE Disposition: Home
== END 2019-01-17 13:04 | disposition home or self-care (01) ==
LOC: UCEAST 11:22 → EDSEX 11:22 → UCEAST 13:04
DX: K08.89 Other specified disorders of teeth and supporting structures (principal); F32.9 Major depressive disorder, single episode, unspecified; F17.210 Nicotine dependence, cigarettes, uncomplicated
CPT/HCPCS: 99212; G0463

== ENCOUNTER 2019-04-08 12:40 | Emergency (ER) | payer OTHER ==
[2019-04-08 12:58] VITALS: BP 122/82
[2019-04-08] MEDS ORDERED: Tetan/Diph/Pertus SYR(Tdap)* 0.5 ML SYR(BOOSTRIX) use SYR IM ONE (13:03)
--- NOTE | 2019-04-08 13:22 | UC ---
Bite Injury/Animal HPI - HPI Summary HPI Summary: Yesterday was bitten by dog in L buttock while visiting his aunt in [facility]. pt did not take down owners name down, but states that they told him dog was UTD on all his shots. pt is having pain now. - History of Current Complaint Chief Complaint: UCGeneralIllness Stated Complaint: COUGH,DOG BITE Time Seen by Provider: 04/08/19 12:59 Hx Obtained From: Patient Pain Intensity: 6 Pain Scale Used: 0-10 Numeric Onset/Duration: Sudden Onset Type of Bite: Animal - dog Character: Puncture Associated Signs And Symptoms: Positive: Erythema. Negative: Fever, Numbness/ Tingling Animal Control Notified: Yes - Allergies/Home Medications Allergies/Adverse Reactions: Allergies Allergy/AdvReac Type Severity Reaction Status Date / Time lactose Allergy Abdominal Verified 04/08/19 12:58 Pain olopatadine [From Patanol] Allergy Unknown Verified 04/08/19 12:58 Reaction Details Home Medications: Home Medications Progesterone, Micronized [Progesterone] 1 tab PO DAILY 04/08/19 [History Confirmed 04/08/19] PMH/Surg Hx/FS Hx/Imm Hx - Additional Past Medical History Additional PMH: transitioning Previously Healthy: Yes Other History Of: Negative For: Anticoagulant Therapy - Surgical History Surgical History: Yes Surgery Procedure, Year, and Place: WISDOM TEETH, septum. 9 dental extractions in february 2019 - Family History Known Family History: Positive: Hypertension, Diabetes - father, Other - EtOH abuse and bipolar disorder both parents, Non-Contributory - Social History Alcohol Use: Occasionally Substance Use Type: Marijuana Substance Use Comment - Amount & Last Used: daily Smoking Status (MU): Heavy Every Day Tobacco Smoker Type: Cigarettes Length of Time of Smoking/Using Tobacco: 1 pack a day Have You Smoked in the Last Year: Yes Household Exposure Type: Cigarettes - Immunization History Most Recent Influenza Vaccination: unknown Most Recent Tetanus Shot: unknown Most Recent Pneumonia Vaccination: unknown Review of Systems All Other Systems Reviewed And Are Negative: Yes Constitutional: Negative: Fever Skin: Positive: Bruising, Other - abrasions/scabs Neurovascular: Negative: Decreased Sensation Musculoskeletal: Positive: Myalgia. Negative: Edema Neurological: Negative: Weakness Physical Exam Triage Information Reviewed: Yes Appearance: Well-Appearing Vital Signs: Initial Vital Signs Temp 98.8 F 04/08/19 12:52 Pulse 91 09/15/19 12:52 Resp 16 04/08/19 12:52 BP 122/82 04/08/19 12:52 Pulse Ox 99 04/08/19 12:52 Vital Signs Reviewed: Yes Respiratory Exam: Normal Cardiovascular Exam: Normal Neurological: Positive: Alert Skin: Negative: Rashes Bite Injury Course/Dx - Course Course Of Treatment: dog bite in L buttocks w/ puncture healed wound and bruising. vitals good. dept. of health called and we discussed augmentin rx and how to take. - Differential Dx/Diagnosis Differential Diagnosis/HQI/PQRI: Cellulitis, Superficial Infection, Other Provider Diagnosis: Dog bite Discharge ED - Sign-Out/Discharge Documenting (check all that apply): Patient Departure All imaging exams completed and their final reports reviewed: No Studies - Discharge Plan Condition: Good Disposition: HOME Prescriptions: Amoxicillin/Clavulanate TAB* [Augmentin TAB 875*] 875 mg PO BID 10 Days #20 tab Patient Education Materials: Animal Bite (ED) Forms: *Work Release Referrals: No Primary Care Phys,NOPCP [Primary Care Provider] - Additional Instructions: please call the dept. of health in your area - Billing Disposition and Condition Condition: GOOD Disposition: Home
== END 2019-04-08 13:40 | disposition home or self-care (01) ==
LOC: UCEAST 12:40
DX: S31.825A Open bite of left buttock, initial encounter (principal); W54.0XXA Bitten by dog, initial encounter; Y92.019 Unspecified place in single-family (private) house as the place of occurrence of the external cause; F17.210 Nicotine dependence, cigarettes, uncomplicated; Z23 Encounter for immunization
CPT/HCPCS: 90471; 90715; 99212; G0463

== ENCOUNTER 2019-06-14 15:39 | Emergency (ER) | payer OTHER ==
[2019-06-14 16:05] VITALS: BP 124/69
[2019-06-14] MEDS ORDERED: Ibuprofen TAB* 600 MG PO ONE (16:06)
[2019-06-14 16:24] LABS: Influenza A Molecular NEGATIVE (Negative); Influenza B Molecular NEGATIVE (Negative)
--- NOTE | 2019-06-14 16:28 | UC ---
FLU HPI - HPI Summary HPI Summary: Patient is a 23-year-old male presenting with body aches, sore throat, chills, fever, stomach upset since last night. Also notes some nasal congestion. Denies headache, ear pain, sinus pressure. Notes mild dry cough. Denies shortness breath and wheezing. Denies chest pain. Denies nausea, vomiting, diarrhea. Denies abdominal pain. Patient states he is not taking anything for symptomatic relief. States that his brother's also has similar symptoms. - History of Current Complaint Chief Complaint: UCRespiratory Stated Complaint: COLD, FLU SYMPTOMS Hx Obtained From: Patient Onset/Duration: Gradual Onset Severity Currently: Mild Severity Initially: Moderate Pain Intensity: 5 Pain Scale Used: 0-10 Numeric - Allergy/Home Medications Allergies/Adverse Reactions: Allergies Allergy/AdvReac Type Severity Reaction Status Date / Time lactose Allergy Abdominal Verified 06/14/19 16:00 Pain olopatadine [From Patanol] Allergy Unknown Verified 06/14/19 16:00 Reaction Details Home Medications: Home Medications guaiFENesin [Mucinex] 600 mg PO Q12H PRN 06/14/19 [History Confirmed 06/14/19] PMH/Surg Hx/FS Hx/Imm Hx Other History Of: Negative For: Anticoagulant Therapy - Surgical History Surgical History: Yes Surgery Procedure, Year, and Place: WISDOM TEETH, septum. 9 dental extractions in february 2019. R arm surgery - Family History Known Family History: Positive: Hypertension, Diabetes - father, Other - EtOH abuse and bipolar disorder both parents, Non-Contributory - Social History Alcohol Use: Occasionally Substance Use Type: Marijuana Substance Use Comment - Amount & Last Used: daily Smoking Status (MU): Heavy Every Day Tobacco Smoker Type: Cigarettes Length of Time of Smoking/Using Tobacco: 1 pack a day Have You Smoked in the Last Year: Yes Household Exposure Type: Cigarettes - Immunization History Most Recent Influenza Vaccination: unknown Most Recent Tetanus Shot: unknown Most Recent Pneumonia Vaccination: unknown Review of Systems All Other Systems Reviewed And Are Negative: Yes Constitutional: Positive: Fever, Chills ENT: Positive: Sore Throat, Sinus Congestion. Negative: Ear Ache, Nasal Discharge, Sinus Pain/Tenderness Respiratory: Positive: Cough - Dry. Negative: Shortness Of Breath Cardiovascular: Positive: Negative Gastrointestinal: Positive: Abdominal Pain. Negative: Vomiting, Diarrhea, Nausea Genitourinary: Positive: Negative Musculoskeletal: Positive: Myalgia Neurological: Positive: Negative. Negative: Headache Physical Exam Triage Information Reviewed: Yes Appearance: No Pain Distress, Well-Nourished, Ill-Appearing, Other: - Diaphoretic Vital Signs: Initial Vital Signs Temp 102.1 F 06/14/19 16:03 Pulse 91 06/14/19 16:03 Resp 18 06/14/19 16:03 BP 124/69 06/14/19 16:03 Pulse Ox 96 06/14/19 16:03 Lab Results 06/14/19 06/14/19 Range/Units 16:10 16:12 Influenza A (Rapid) Negative (Negative) Influenza B (Rapid) Negative (Negative) Group A Strep Rapid Negative (Negative) Vital Signs Reviewed: Yes Eyes: Positive: Conjunctiva Inflamed ENT: Positive: Hearing grossly normal, Pharyngeal erythema, Nasal congestion, TMs normal, Uvula midline. Negative: Nasal drainage, Tonsillar swelling, Tonsillar exudate, Sinus tenderness Neck exam: Normal Neck: Positive: Supple, Nontender, No Lymphadenopathy Respiratory Exam: Normal Respiratory: Positive: Lungs clear, Normal breath sounds, No respiratory distress. Negative: Crackles, Rhonchi, Stridor, Wheezing Cardiovascular Exam: Normal Cardiovascular: Positive: RRR Abdominal Exam: Normal Abdomen Description: Positive: Nontender, Soft Bowel Sounds: Positive: Present Neurological: Positive: Alert, Fatigued Psychological: Positive: Age Appropriate Behavior Flu Course/Dx - Course Course Of Treatment: Discussed negative strep and rapid flu tests with patient. Educated on viral illnesses and symptomatic treatment. Instructed to continue symptomatic treatment and follow-up if symptoms persist. Instructed to go to the ED with new or worsening symptoms. Patient voiced understanding and agreed with the treatment plan. - Differential Dx/Diagnosis Provider Diagnosis: Flu-like symptoms Discharge ED - Sign-Out/Discharge Documenting (check all that apply): Patient Departure All imaging exams completed and their final reports reviewed: No Studies - Discharge Plan Condition: Stable Disposition: HOME Patient Education Materials: Viral Syndrome (ED) Forms: *Work Release Referrals: [facility] [Outside] - If Needed [facility] [Outside] - If Needed Additional Instructions: As discussed, your rapid strep and flu tests were negative today. Your symptoms are most likely caused by a different virus. Viruses do not respond to antibiotic treatment. You may continue to take over the counter cold and flu medications for your symptoms. You may take ibuprofen and/or tylenol as directed for pain and fever relief. Get plenty of rest and increase your fluid intake. You should begin to feel better within a few days. Follow up with your primary care doctor if your symptoms do not resolve. Go to the emergency room with any new or worsening symptoms. - Billing Disposition and Condition Condition: STABLE Disposition: Home
== END 2019-06-14 17:05 | disposition home or self-care (01) ==
LOC: UCEAST 15:39
DX: J02.9 Acute pharyngitis, unspecified (principal); M79.10 Myalgia, unspecified site; R09.81 Nasal congestion; R05 Cough; F17.210 Nicotine dependence, cigarettes, uncomplicated; R50.9 Fever, unspecified; R10.9 Unspecified abdominal pain; Z91.011 Allergy to milk products; Z88.8 Allergy status to other drugs, medicaments and biological substances
CPT/HCPCS: 87651; 99211; A9270-GY; G0463

== ENCOUNTER 2019-06-16 10:32 | Emergency (ER) | payer OTHER ==
[2019-06-16 10:46] VITALS: BP 125/69
--- NOTE | 2019-06-16 10:56 | UC ---
Respiratory Complaint HPI - HPI Summary HPI Summary: her a couple of days ago with fever and dx with viral illness---continues to have cough and chest congestion - History of Current Complaint Chief Complaint: UCRespiratory Stated Complaint: FEVER, COUGH Time Seen by Provider: 06/16/19 10:53 Hx Obtained From: Patient Onset/Duration: Sudden Onset, Lasting Days - 2, Still Present Timing: Constant Pain Intensity: 6 Pain Scale Used: 0-10 Numeric Character: Cough: Productive Aggravating Factors: Deep Breaths, Recumbent Position Alleviating Factors: Nothing Associated Signs And Symptoms: Positive: URI - Allergies/Home Medications Allergies/Adverse Reactions: Allergies Allergy/AdvReac Type Severity Reaction Status Date / Time lactose Allergy Abdominal Verified 06/16/19 10:46 Pain olopatadine [From Patanol] Allergy Unknown Verified 06/16/19 10:46 Reaction Details Home Medications: Home Medications Dm/PE/Acetaminophen/Doxylamine [Vicks Dayquil-Nyquil Cold-Flu] 1 mis PO Q6HR PRN 06/16/19 [History Confirmed 06/16/19] Ibuprofen 600 mg PO Q12HR PRN 06/16/19 [History Confirmed 06/16/19] PMH/Surg Hx/FS Hx/Imm Hx Previously Healthy: Yes Other History Of: Negative For: Anticoagulant Therapy - Surgical History Surgical History: Yes Surgery Procedure, Year, and Place: WISDOM TEETH, septum. 9 dental extractions in february 2019. R arm surgery - Family History Known Family History: Positive: Hypertension, Diabetes - father, Other - EtOH abuse and bipolar disorder both parents, Non-Contributory - Social History Occupation: Employed Part-time Lives: With Family Alcohol Use: Occasionally Substance Use Type: Marijuana Substance Use Comment - Amount & Last Used: daily Smoking Status (MU): Heavy Every Day Tobacco Smoker Type: Cigarettes Length of Time of Smoking/Using Tobacco: 15cig/day Have You Smoked in the Last Year: Yes Household Exposure Type: Cigarettes - Immunization History Most Recent Influenza Vaccination: unknown Most Recent Tetanus Shot: unknown Most Recent Pneumonia Vaccination: unknown Review of Systems All Other Systems Reviewed And Are Negative: Yes Constitutional: Positive: Fever, Chills, Fatigue Skin: Positive: Negative Eyes: Positive: Negative ENT: Positive: Sore Throat, Ear Ache, Nasal Discharge Respiratory: Positive: Cough Cardiovascular: Positive: Negative Gastrointestinal: Positive: Negative Genitourinary: Positive: Negative Motor: Positive: Negative Neurovascular: Positive: Negative Musculoskeletal: Positive: Negative Neurological: Positive: Negative Psychological: Positive: Negative Is Patient Immunocompromised?: No Physical Exam Triage Information Reviewed: Yes Appearance: Well-Appearing, No Pain Distress, Well-Nourished Vital Signs: Initial Vital Signs Temp 98 F 06/16/19 10:41 Pulse 89 06/16/19 10:41 Resp 18 06/16/19 10:41 BP 125/69 06/16/19 10:41 Pulse Ox 96 06/16/19 10:41 Vital Signs Reviewed: Yes Eye Exam: Normal Eyes: Positive: Conjunctiva Clear ENT Exam: Normal ENT: Positive: Normal ENT inspection, Hearing grossly normal, TMs normal, Sinus tenderness, Uvula midline. Negative: Nasal congestion, Nasal drainage, Tonsillar swelling, Tonsillar exudate, Trismus, Muffled voice, Hoarse voice Dental Exam: Normal Neck exam: Normal Neck: Positive: Supple, Nontender, No Lymphadenopathy Respiratory Exam: Normal Respiratory: Positive: Chest non-tender, Lungs clear, Normal breath sounds, No respiratory distress, No accessory muscle use Cardiovascular Exam: Normal Cardiovascular: Positive: RRR, No Murmur, Pulses Normal, Brisk Capillary Refill Musculoskeletal Exam: Normal Musculoskeletal: Positive: Strength Intact, ROM Intact, No Edema Neurological Exam: Normal Neurological: Positive: Alert, Muscle Tone Normal Psychological Exam: Normal Skin Exam: Normal Respiratory Course/Dx - Course Course Of Treatment: increase fluids, albuterol with aerochamber, tessalon, tylenol/ibuprofen for pain follow with pcp prn, 2 days off from work - Differential Dx/Diagnosis Provider Diagnosis: Acute viral syndrome, Acute bronchospasm due to viral infection Discharge ED - Sign-Out/Discharge Documenting (check all that apply): Patient Departure All imaging exams completed and their final reports reviewed: No Studies - Discharge Plan Condition: Stable Disposition: HOME Prescriptions: Albuterol HFA INHALER* [Ventolin HFA Inhaler*] 2 puff INH Q4H PRN #1 mdi PRN Reason: cough chest tightness Benzonatate CAP* [Tessalon 100 MG CAP*] 100 mg PO TID PRN #50 cap PRN Reason: Cough Patient Education Materials: Viral Syndrome (ED), How to Use a Metered-Dose Inhaler and a Spacer (ED), Acute Cough (ED) Forms: *Work Release Referrals: [facility] [Outside] - If Needed - Billing Disposition and Condition Condition: STABLE Disposition: Home - Attestation Statements Provider Attestation: I was available for consult. This patient was seen by the NISHA. The patient was not presented to , seen by or examined by ne -Nadege Matias MD
== END 2019-06-16 11:08 | disposition home or self-care (01) ==
LOC: UCEAST 10:32
DX: J98.01 Acute bronchospasm (principal); B34.9 Viral infection, unspecified; F17.210 Nicotine dependence, cigarettes, uncomplicated; J02.9 Acute pharyngitis, unspecified; R09.89 Other specified symptoms and signs involving the circulatory and respiratory systems; R68.83 Chills (without fever); R53.83 Other fatigue; H92.09 Otalgia, unspecified ear; Z91.011 Allergy to milk products; Z88.8 Allergy status to other drugs, medicaments and biological substances
CPT/HCPCS: 99212; G0463

== ENCOUNTER 2019-06-20 21:41 | Emergency (ER) | payer OTHER ==
[2019-06-20] MEDS ORDERED: Azithromycin TAB* 250 MG PO ONE ×2 (21:52→21:53)
[2019-06-20 21:54] VITALS: BP 140/67
--- NOTE | 2019-06-20 21:55 | UC ---
Throat Pain/Nasal [place] HPI - HPI Summary HPI Summary: 23-year-old male comes in with a chief complaint of almost 10 days of upper respiratory tract infection symptoms. Had a runny nose sore throats cough chest congestion. Albuterol inhalers been helping with the breathing and the breathing overall is improving. Now losing voice. [id number] medications have helped some with the symptoms but overall not improving. - History of Current Complaint Stated Complaint: COUGH, LOSING VOICE Time Seen by Provider: 06/20/19 21:45 - Allergies/Home Medications Allergies/Adverse Reactions: Allergies Allergy/AdvReac Type Severity Reaction Status Date / Time lactose Allergy Abdominal Verified 06/16/19 10:46 Pain olopatadine [From Patanol] Allergy Unknown Verified 06/16/19 10:46 Reaction Details PMH/Surg Hx/FS Hx/Imm Hx Previously Healthy: Yes Other History Of: Negative For: Anticoagulant Therapy - Surgical History Surgical History: Yes Surgery Procedure, Year, and Place: WISDOM TEETH, septum. 9 dental extractions in february 2019. R arm surgery - Family History Known Family History: Positive: Hypertension, Diabetes - father, Other - EtOH abuse and bipolar disorder both parents, Non-Contributory - Social History Alcohol Use: Occasionally Substance Use Type: Marijuana Substance Use Comment - Amount & Last Used: daily Smoking Status (MU): Heavy Every Day Tobacco Smoker Type: Cigarettes Length of Time of Smoking/Using Tobacco: 15cig/day Have You Smoked in the Last Year: Yes Household Exposure Type: Cigarettes - Immunization History Most Recent Influenza Vaccination: unknown Most Recent Tetanus Shot: unknown Most Recent Pneumonia Vaccination: unknown Review of Systems All Other Systems Reviewed And Are Negative: Yes Constitutional: Positive: Other - SEE HPI Skin: Positive: Negative Eyes: Positive: Negative ENT: Positive: Sore Throat, Nasal Discharge, Sinus Congestion Respiratory: Positive: Cough, Other - SEE HPI Cardiovascular: Positive: Negative Gastrointestinal: Positive: Negative Motor: Positive: Negative Neurovascular: Positive: Negative Musculoskeletal: Positive: Negative Neurological: Positive: Negative Psychological: Positive: Negative Is Patient Immunocompromised?: No Physical Exam Triage Information Reviewed: Yes Appearance: No Pain Distress, Well-Nourished, Ill-Appearing - MILD Vital Signs Reviewed: Yes Eye Exam: Normal Eyes: Positive: Conjunctiva Clear ENT: Positive: Pharyngeal erythema, Nasal congestion, Nasal drainage, TMs normal Neck: Positive: Supple Respiratory: Positive: Lungs clear, Normal breath sounds, No respiratory distress Cardiovascular: Positive: RRR Musculoskeletal: Positive: Strength Intact, ROM Intact Neurological: Positive: Alert Psychological: Positive: Age Appropriate Behavior Skin Exam: Normal Throat Pain/Nasal Course/Dx - Course Course Of Treatment: 10+ DAYS OF SX - Differential Dx/Diagnosis Provider Diagnosis: Bronchitis with bronchospasm Discharge ED - Sign-Out/Discharge Documenting (check all that apply): Patient Departure All imaging exams completed and their final reports reviewed: No Studies - Discharge Plan Condition: Stable Disposition: HOME Prescriptions: Azithromycin 250 mg PO DAILY #3 tablet Patient Education Materials: Acute Bronchitis (ED), Bronchospasm (ED) Forms: *Work Release Referrals: [facility] [Outside] Additional Instructions: FOLLOW UP WITH YOUR DOCTOR IF NOT COMPLETELY IMPROVED. GET REEVALUATED SOONER IF NOT IMPROVED OR WORSE OR ANY QUESTIONS OR CONCERNS. - Billing Disposition and Condition Condition: STABLE Disposition: Home
== END 2019-06-20 22:01 | disposition home or self-care (01) ==
LOC: UCEAST 21:41
DX: J40 Bronchitis, not specified as acute or chronic (principal); J98.01 Acute bronchospasm; F17.210 Nicotine dependence, cigarettes, uncomplicated; R09.89 Other specified symptoms and signs involving the circulatory and respiratory systems; Z88.8 Allergy status to other drugs, medicaments and biological substances; Z91.011 Allergy to milk products
CPT/HCPCS: 99212; A9270-GY; G0463

== ENCOUNTER 2019-09-15 23:24 | Emergency (ER) | payer OTHER ==
--- NOTE | 2019-09-15 23:30 | ED ---
Influenza-Like Illness - HPI Summary HPI Summary: 24-year-old male who identifies as female presents to the emergency department today with a chief complaint of 2 days of myalgia, abdominal pain, nausea, vomiting, diarrhea, chills, fever, cough, nasal congestion. Patient states she has not taken any medication prior to arrival for alleviation of her symptoms. Patient endorses possible influenza exposure. Patient otherwise feels well and denies chest pain, neck pain, blood per rectum, rash, pain with urination. - History of Current Complaint Chief Complaint: EDFluSymptoms Hx Obtained From: Patient Onset/Duration: Gradual Onset, Lasting Days Severity: Moderate Associated Signs & Symptoms: Fever, Myalgia, Cough, Sore Throat, Nasal Congestion, Headache, Vomiting, Diarrhea Related Hx: Possible Flu/Infectious Exposure - Allergy/Home Medications Allergies/Adverse Reactions: Allergies Allergy/AdvReac Type Severity Reaction Status Date / Time lactose Allergy Abdominal Verified 09/15/19 23:49 Pain olopatadine [From Patanol] Allergy Unknown Verified 09/15/19 23:49 Reaction Details Home Medications: Home Medications Estradiol TAB(NF) 2 mg SL TID 11/26/17 [History Confirmed 09/15/19] Spironolactone TAB* [Aldactone TAB 25 MG*] 100 mg PO BID 11/26/17 [History Confirmed 09/15/19] Progesterone, Micronized [Progesterone] 1 tab PO DAILY 04/08/19 [History Confirmed 09/15/19] Albuterol HFA INHALER* [Ventolin HFA Inhaler*] 2 puff INH Q4H PRN #1 mdi [Rx Confirmed 09/15/19] Ibuprofen 600 mg PO Q12HR PRN 06/16/19 [History Confirmed 09/15/19] Ondansetron ODT TAB* [Zofran 4 MG Odt TAB*] 4 mg PO Q6H PRN #12 tab.odt [Rx] Oseltamivir CAP* [Tamiflu CAP*] 75 mg PO BID 5 Days #10 cap 09/15/19 [Rx] PMH/Surg Hx/FS Hx/Imm Hx Endocrine/Hematology History: Reports: Other Endocrine/Hematological Disorders - "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"; undergoing transgender transition Denies: Hx Anticoagulant Therapy, Hx Diabetes, Hx Thyroid Disease Cardiovascular History: Denies: Hx Hypertension, Other Cardiovascular Problems/Disorders Respiratory History: Denies: Hx Asthma, Hx Chronic Obstructive Pulmonary Disease (COPD), Other Respiratory Problems/Disorders GI History: Denies: Hx Ulcer, Other GI Disorders History: Denies: Hx Renal Disease Sensory History: Reports: Hx Contacts or Glasses - GLASSES Denies: Hx Hearing Aid Opthamlomology History: Reports: Hx Contacts or Glasses - GLASSES Neurological History: Reports: Hx 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 Denies: Hx CVA, Other Neuro Impairments/Disorders Psychiatric History: Denies: Hx Eating Disorder, Hx of Violent Episodes Against Others - Surgical History Surgery Procedure, Year, and Place: WISDOM TEETH, septum. 9 dental extractions in february 2019. R arm surgery Hx Anesthesia Reactions: No Infectious Disease History: No Infectious Disease History: Denies: Hx Hepatitis, Hx Human Immunodeficiency Virus (HIV), Traveled Outside the [place] in Last 30 Days - Family History Known Family History: Positive: Hypertension, Diabetes - father, Other - EtOH abuse and bipolar disorder both parents, Non-Contributory - Social History Alcohol Use: Occasionally Hx Substance Use: Yes Substance Use Type: Reports: Marijuana Substance Use Comment - Amount & Last Used: daily Hx Tobacco Use: Yes Smoking Status (MU): Heavy Every Day Tobacco Smoker Type: Cigarettes Length of Time of Smoking/Using Tobacco: 15cig/day Have You Smoked in the Last Year: Yes Review of Systems Positive: Fever, Fatigue Positive: Sore Throat, Nasal Discharge Cardiovascular: Negative Positive: Shortness Of Breath, Cough Gastrointestinal: Negative Genitourinary: Negative Musculoskeletal: Negative Skin: Negative Neurological/Mental Status: Negative Psychological: Normal All Other Systems Reviewed And Are Negative: Yes Physical Exam - Summary Physical Exam Summary: Patient is in no acute distress. Patient instructed to follow broken sentences. No accessory muscle use. Triage Information Reviewed: Yes Vital Signs On Initial Exam: Initial Vitals Temp Pulse Resp BP Pulse Ox 100.2 F 125 18 135/81 96 09/15/19 23:26 09/15/19 23:26 09/15/19 23:26 09/15/19 23:26 09/15/19 23:26 Vital Signs Reviewed: Yes Appearance: Positive: No Pain Distress, Well-Nourished Skin: Positive: Warm, Skin Color Reflects Adequate Perfusion Eyes: Positive: EOMI, GREG ENT: Positive: Hearing grossly normal Respiratory/Lung Sounds: Positive: Clear to Auscultation, Breath Sounds Present Cardiovascular: Positive: Tachycardia, S1, S2 Abdomen Description: Positive: Nontender, Soft Bowel Sounds: Positive: Present Musculoskeletal: Positive: Strength/ROM Intact Neurological: Positive: Sensory/Motor Intact, Alert, Oriented to Person Place, Time, Normal Gait, Facial Symmetry, Speech Normal Psychiatric: Positive: Normal, Affect/Mood Appropriate AVPU Assessment: Alert Procedures - Sedation Patient Received Moderate/Deep Sedation with Procedure: No Diagnostics - Vital Signs Vital Signs Temp Pulse Resp BP Pulse Ox 09/15/19 23:26 100.2 F 125 18 135/81 96 - Laboratory Lab Statement: Any lab studies that have been ordered have been reviewed, and results considered in the medical decision making process. Flu Symptom Course/Dx - Course Course Of Treatment: Patient was evaluated in the emergency department today for influenza-like illness. Vitals noted. Patient febrile. Patient given 650 mg of Tylenol for fever. Influenza serology returned showing positive influenza A. Patient elected to have Tamiflu treatment. Patient was given 1 dose of Tamiflu in the emergency department as well as Zofran for nausea. Patient was given outpatient prescription for 75 mg tablet twice a day 5 days as well as Zofran. Patient was given by mouth fluids and tachycardia corrected. Patient discharged with outpatient follow-up. No evidence of sequela such as pneumonia. - Diagnoses Differential Diagnosis/HQI/PQRI: Positive: Bronchitis, Influenza, Pneumonia, Upper Respiratory Infection Provider Diagnoses: Influenza A Discharge ED - Sign-Out/Discharge Documenting (check all that apply): Patient Departure - Discharge Plan Condition: Stable Disposition: HOME Prescriptions: Ondansetron ODT TAB* [Zofran 4 MG Odt TAB*] 4 mg PO Q6H PRN #12 tab.odt PRN Reason: Nausea Oseltamivir CAP* [Tamiflu CAP*] 75 mg PO BID 5 Days #10 cap Patient Education Materials: Influenza (ED) Referrals: [facility] [Outside] - 3 Days No Primary Care Phys,NOPCP [Primary Care Provider] - Additional Instructions: You were seen in the emergency department today and diagnosed with influenza. This is an upper respiratory virus which causes cough, muscle aches, fever, nausea, trouble breathing. Viruses are self-limiting and will go away on their own. Be sure to stay hydrated and rest. You may take [id number] decongestants as needed for your symptoms as well as NyQuil at night to improve sleep. Take Tylenol every 6 hours as needed for fever. Please see your primary care physician in 5 days for further evaluation and management. Please do not return to work or school until 24 hours after your fever breaks. Please return to the emergency department immediately if you develop any new or worsening symptoms. Take tamiflu every 12 hours for 5 days. - Billing Disposition and Condition Condition: STABLE Disposition: Home
[2019-09-15] MEDS ORDERED: Acetaminophen TAB* 325 MG PO ONE (23:43)
[2019-09-15 23:52] LABS: Influenza A Molecular POSITIVE (Negative)
[2019-09-15] MEDS ORDERED: Ondansetron ODT TAB* 4 MG SL ONE (23:57)
[2019-09-15] MEDS ORDERED: Oseltamivir CAP* 75 MG CAP PO ONE (23:57)
[2019-09-16 01:09] VITALS: BP 135/69
== END 2019-09-16 01:07 | disposition home or self-care (01) ==
LOC: ED 23:24
DX: J10.1 Influenza due to other identified influenza virus with other respiratory manifestations (principal); Z88.8 Allergy status to other drugs, medicaments and biological substances; Z91.011 Allergy to milk products; F17.210 Nicotine dependence, cigarettes, uncomplicated
CPT/HCPCS: 99283; A9270-GY

== ENCOUNTER 2019-09-17 14:49 | Emergency (ER) | payer OTHER ==
[2019-09-17 15:05] VITALS: BP 145/83
--- NOTE | 2019-09-17 15:06 | UC ---
FLU HPI - HPI Summary HPI Summary: 24 yo male presents with flu symptoms. They tell me that they were diagnosed with the flu 2 days ago and prescribed tamiflu and advised to take tylenol/ ibuprofen. Is feeling better in regards to fever, body aches, cough, and chills. Here today requesting a note for work today as they were only given a note to be out yesterday and they did not feel well enough to go into work today. Eating and drinking well. Denies SOB, chest pain, abdominal pain, n/v - History of Current Complaint Chief Complaint: UCRespiratory Stated Complaint: HAD FLU FOR 2 DAYS Time Seen by Provider: 09/17/19 15:06 Hx Obtained From: Patient Onset/Duration: Sudden Onset Severity Currently: Moderate Severity Initially: Moderate Pain Intensity: 5 Pain Scale Used: 0-10 Numeric - Allergy/Home Medications Allergies/Adverse Reactions: Allergies Allergy/AdvReac Type Severity Reaction Status Date / Time lactose Allergy Abdominal Verified 09/17/19 15:02 Pain olopatadine [From Patanol] Allergy Unknown Verified 09/17/19 15:02 Reaction Details Home Medications: Home Medications Estradiol TAB(NF) 2 mg SL TID 11/26/17 [History Confirmed 09/15/19] Spironolactone TAB* [Aldactone TAB 25 MG*] 100 mg PO BID 11/26/17 [History Confirmed 09/15/19] Progesterone, Micronized [Progesterone] 1 tab PO DAILY 04/08/19 [History Confirmed 09/15/19] Albuterol HFA INHALER* [Ventolin HFA Inhaler*] 2 puff INH Q4H PRN #1 mdi [Rx Confirmed 09/15/19] Ibuprofen 600 mg PO Q12HR PRN 06/16/19 [History Confirmed 09/15/19] Oseltamivir CAP* [Tamiflu CAP*] 75 mg PO BID 5 Days #10 cap 09/15/19 [Rx] Acetaminophen [Tylenol] 650 mg PO Q6H PRN 09/17/19 [History Confirmed 09/17/19] PMH/Surg Hx/FS Hx/Imm Hx Psychological History: Anxiety, Depression Other History Of: Negative For: Anticoagulant Therapy - Surgical History Surgical History: Yes Surgery Procedure, Year, and Place: WISDOM TEETH, septum. 9 dental extractions in february 2019. R arm surgery - Family History Known Family History: Positive: Hypertension, Diabetes - father, Other - EtOH abuse and bipolar disorder both parents, Non-Contributory - Social History Lives: With Family Alcohol Use: Occasionally Substance Use Type: Marijuana Substance Use Comment - Amount & Last Used: daily Smoking Status (MU): Heavy Every Day Tobacco Smoker Type: Cigarettes Length of Time of Smoking/Using Tobacco: 15cig/day Have You Smoked in the Last Year: Yes Household Exposure Type: Cigarettes - Immunization History Most Recent Influenza Vaccination: unknown Most Recent Tetanus Shot: unknown Most Recent Pneumonia Vaccination: unknown Review of Systems All Other Systems Reviewed And Are Negative: No Constitutional: Positive: Fever, Chills, Fatigue, Other - Body aches Skin: Positive: Negative Eyes: Positive: Negative ENT: Positive: Negative Respiratory: Positive: Cough Cardiovascular: Positive: Negative Gastrointestinal: Positive: Negative Neurological/Mental Status: Positive: Negative Psychological: Positive: Negative Physical Exam - Summary Physical Exam Summary: GENERAL: NAD. WDWN. No pain distress. SKIN: No rashes, sores, lesions, or open wounds. HEENT: Head: AT/NC Eyes: EOM intact. Conjunctiva clear without inflammation or discharge. Ears: Hearing grossly normal. TMs intact, no bulging, erythema, or edema. Nose: Nasal mucosa pink and moist. NTTP maxillary and frontal sinus. Throat: Posterior oropharynx without exudates, erythema, or tonsillar enlargement. Uvula midline. NECK: Supple. Nontender. No lymphadenopathy. CHEST: CTAB. No r/r/w. No accessory muscle use. Breathing comfortably and in no distress. CV: RRR. Pulses intact. Cap refill <2seconds NEURO: Alert. PSYCH: Age appropriate behavior. Triage Information Reviewed: Yes Vital Signs: Initial Vital Signs Temp 101.1 F 09/17/19 15:03 Pulse 99 09/17/19 15:03 Resp 18 09/17/19 15:03 BP 145/83 09/17/19 15:03 Pulse Ox 97 09/17/19 15:03 Vital Signs Reviewed: Yes Flu Course/Dx - Course Course Of Treatment: Will write for note off work today. Advised to continue tamiflu and supportive flu treatment - Differential Dx/Diagnosis Provider Diagnosis: Influenza Discharge ED - Sign-Out/Discharge Documenting (check all that apply): Patient Departure All imaging exams completed and their final reports reviewed: No Studies - Discharge Plan Condition: Stable Disposition: HOME Patient Education Materials: Influenza (ED) Forms: *Work Release Referrals: No Primary Care Phys,NOPCP [Primary Care Provider] - Additional Instructions: Continue alternating tylenol and ibuprofen as directed for fever and discomfort - Billing Disposition and Condition Condition: STABLE Disposition: Home
== END 2019-09-17 15:43 | disposition home or self-care (01) ==
LOC: UCEAST 14:49
DX: J11.1 Influenza due to unidentified influenza virus with other respiratory manifestations (principal); F17.210 Nicotine dependence, cigarettes, uncomplicated; Z91.011 Allergy to milk products; Z88.8 Allergy status to other drugs, medicaments and biological substances
CPT/HCPCS: 99211; G0463